=== PATIENT | male | born 1965 | race African-American/Black ===

== ENCOUNTER 2016-08-31 20:02 | Inpatient (IN) | payer MEDICARE, MEDICAID ==
--- NOTE | 2016-08-31 20:05 | ED Physician Chart ---
Chief Complaint/HPI - Patient Information Date Seen:: 08/31/16 Time Seen:: 20:05 Chief Complaint:: low blood pressure History of Present Illness:: 51-year-old male history of hepatic failure and elevated ammonia levels brought in by EMS after EMS diverted transport to the closest emergency room for acute, severe, low blood pressure that was noted about 5 minutes prior to arrival. Has associated lethargy. Patient was a resident at [facility] was being transported to an alternate hospital when EMS noted low blood pressure and diverted to this hospital/emergency department which was the closest at that time. History limited as patient has underlying hepatic encephalopathy and is an unreliable historian History provided by EMS and EMS run sheet Allergies:: Allergies Allergy/AdvReac Type Severity Reaction Status Date / Time No Known Allergies Allergy Verified 01/22/16 14:10 Historian:: Patient, EMS Review:: Nurse's Note Reviewed, EMS run form Reviewed Review of Systems - Review of Systems Other: Complete system review otherwise unremarkable except as noted in HPI. Past Medical History - Past Medical History Past Medical History: Asthma/COPD, Other (hepatic insufficiency/failure, elevated ammonia levels) Family History: None Social History: Smoker, No Alcohol, No Drug Use, Care Facility Surgical History: None Psychiatricy History: None Medication: Reviewed Family Medical History - Family Member Mother History Unknown: Yes Labs/Radiology/EKG Results - Radiology Results Results: Single AP VIEW Portable Chest X-ray was interpreted independently and contemporaneously by Telly Dominguez MD: No cardiomegaly Normal mediastinum No lung infiltrates No pneumothorax No soft tissue or bony abnormalities - EKG Interpretations Comments:: 12-lead EKG Interpretation by Telly Dominguez MD: Normal Sinus Rhythm with ventricular rate of 69 beats per minute Normal axis Normal intervals No acute ST or T wave changes. No obvious STEMI Assessment - Assessment General Assessment: SMOKING CESSATION COUNSELING: I spent greater than 3 minutes at the bedside with the patient discussing the benefits of smoking cessation, including decreased risk of heart disease, lung cancer, and emphysema. We also discussed strategies for smoking cessation, including pharmaceutical options. The patient was also encouraged to follow up with the primary care physician for outpatient follow-up. ED Septic Shock - . Is Septic Shock (SBP<90, OR Lactate>4 mmol\L) present?: Yes - <6hrs of presentation: Vital Signs: Vital Signs Temp 98.1 F 08/31/16 20:05 HR 73 08/31/16 20:05 RR 16 08/31/16 20:05 BP 88/57 08/31/16 20:05 O2 Sat % 99 08/31/16 20:05 Temp 98.1 F 08/31/16 20:05 HR 65 08/31/16 21:42 RR 16 08/31/16 21:42 BP 88/55 08/31/16 21:42 O2 Sat % 99 08/31/16 21:42 Vital Signs Temp 98.1 F 08/31/16 20:05 HR 73 08/31/16 20:05 RR 16 08/31/16 20:05 BP 88/57 08/31/16 20:05 O2 Sat % 99 08/31/16 20:05 Temp 98.1 F 08/31/16 20:05 HR 61 08/31/16 22:20 RR 16 08/31/16 21:42 BP 93/54 08/31/16 22:20 O2 Sat % 99 08/31/16 21:42 Assessment of Lungs: Lung CTA bilateral, No Wheezing, No Stridor Assessment of Heart: RRR, No Rub, No Murmur EKG Interpretation: NSR, Documented in Result Capillary refill evaluation: Capillary refill < 2 secs Skin Exam: Warm, Dry - Peripheral pulse evaluation Brachial Peripheral pulse evaluation-quality: +2 (normal) Reassessment (Disposition) - Reassessment Reassessment:: Patient's initial blood pressure was low with systolic below 80. IV fluid bolus 30 cc/kg was performed. Blood pressure responded well. Patient remained alert and oriented entire time. I have a low suspicion for sepsis however it should be ruled out. EKG machine read acute OH. I did not feel there was acute ST elevation however V2 did demonstrate some slight ST elevation. Discussed case with our STEMI receiving center president and chief commercial officer tactical response group officer Dr. Mota who reviewed the EKG and also felt there was no acute findings. Cardiology did recommend stat echocardiogram which was performed. Troponins are negative. No acute findings on echocardiogram. Discussed case with Dr. Green, rule out sepsis unknown source at this time. Severe hypotension. Patient admitted to ICU. Admit MDM: Patient's infectious symptoms have not stabilized and the patient is at risk of rapid decompensation. The patient will be admitted for careful hydration, antibiotic therapy, and infectious source control. Severe Sepsis criteria: Infectious source: Unknown End organ damage indicated by: Hypotension (SBP < 90 or >40 mmHG drop or MAP < 65) Sepsis Management: Time of recognition of severe sepsis/septic shock: 2004 Within 3 hours of recognition: Blood cultures x 2 before broad-spectrum antibiotics: Yes 30 ml/kg NS bolus Completed Initial lactate 1.34 Septic Shock Assessment: Any lactic acid > 4.0 No Persistent hypotension (SBP < 90 or 40 mmHg drop, MAP < 65) despite 30 mL/kg IV fluid bolus No Volume Re-assessment for Septic Shock (post 30 ml/kg bolus): Vital Signs Temp 98.1 F 08/31/16 20:05 HR 73 08/31/16 20:05 RR 16 08/31/16 20:05 BP 88/57 08/31/16 20:05 O2 Sat % 99 08/31/16 20:05 Temp 98.1 F 08/31/16 20:05 HR 65 08/31/16 21:42 RR 16 08/31/16 21:42 BP 88/55 08/31/16 21:42 O2 Sat % 99 08/31/16 21:42 Vital Signs Temp 98.1 F 08/31/16 20:05 HR 73 08/31/16 20:05 RR 16 08/31/16 20:05 BP 88/57 08/31/16 20:05 O2 Sat % 99 08/31/16 20:05 Temp 98.1 F 08/31/16 20:05 HR 61 08/31/16 22:20 RR 16 08/31/16 21:42 BP 93/54 08/31/16 22:20 O2 Sat % 99 08/31/16 21:42 Heart Regular rate & rhythm Lungs No crackles Skin Warm & dry Cap Refill Less than 2 seconds Peripheral pulses Radially present Accepting Care Team Current data and ongoing care discussed. Time: 2138 Admitting Physician: Peter Fixer Boarding Room(s): Critical Care: Critical care time 35 minutes Emergent fluid management while maintaining close respiratory support. Provision of immediate and broad-spectrum antibiotic therapy. Simultaneous assessment for possible sources in order to direct targeted therapy. Consideration for invasive and chemical support to prevent cardiopulmonary collapse. Reassessment Condition:: Improved - Diagnosis Diagnosis:: Rule out septic shock, unknown source Hepatic encephalopathy Chronic Liver failure - Patient Disposition Discharge/Transfer:: Acute Care w/in this hosp Admitted to:: ICU Admitting Medical Physician:: Derrell Green Time:: 21:39 Condition at Disposition:: Improved ED Discharge Plan - Patient Disposition Admit/Discharge/Transfer: Acute Care w/in this hosp
[2016-08-31] MEDS ORDERED: Sodium Chloride 0.9% 1,000 ML IV ONE ×3 (20:08→20:17)
[2016-08-31 20:44] LABS: % BASOPHILS 0.6 % (0.0-2.0); % EOSINOPHILS 2.9 % (0.0-5.0); % LYMPHOCYTES 38.2 % (20.0-50.0); % NEUTROPHILS 49.3 % (40.0-80.0); HEMOGLOBIN 13.7 gm/dL (13.2-17.3); MEAN CELL VOLUME 100.8 fl (80-99); MEAN CORPUSCULAR HEMOGLOBIN 33.5 pg (26.0-30.0); MEAN CORPUSCULAR HGB CONC 33.3 pg (28.0-36.0); MEAN PLATELET VOLUME 8.4 fl; NEUTROPHILE ABSOLUTE 4.2 Th/cmm (1.8-8.0); RED BLOOD COUNT 4.08 Mil/cmm (4.30-5.70); RED CELL DISTRIBUTION WIDTH 13.6 % (11.5-20.0); WHITE BLOOD COUNT 8.6 Th/cmm (4.8-10.8)
[2016-08-31 20:47] LABS: HEMATOCRIT 41.1 % (39.0-49.0); PLATELET COUNT 157 Th/cmm (150-400)
[2016-08-31] MEDS ORDERED: cefTRIAXone 1 GM in Sodium Chloride 0.9% 50 ML IV ONE (20:59)
[2016-08-31 21:06] LABS: ALB/GLOB RATIO 0.9 (1.0-1.8); ALKALINE PHOSPHATASE 40 U/L (34-104); ANION GAP 8.7 (7.0-16.0); BILIRUBIN,TOTAL 0.2 mg/dL (0.3-1.0); BUN - UREA NITROGEN 16 mg/dL (7-25); CARBON DIOXIDE 28.3 mEq/L (21.0-31.0); CHLORIDE 101 mEq/L (98-107); CREATININE - SERUM 0.8 mg/dL (0.7-1.3); GLUCOSE 115 mg/dL (70-105); SGOT 22 U/L (13-39); SGPT/ALT 17 U/L (7-52); SODIUM SERUM 134 mEq/L (136-145)
[2016-08-31 21:14] LABS: INR 1.11 (0.5-1.4); PROTHROMBIN TIME (TEST) 11.6 SECONDS (9.5-11.5)
[2016-08-31] MEDS ORDERED: Maalox 30 mL Cup PO PRN (21:48)
[2016-08-31] MEDS ORDERED: Magnesium Hydroxide (MOM) 30 mL UDC PO PRN (21:48)
[2016-08-31] MEDS ORDERED: D5-0.9%NS 1,000 ML IV SCH (22:00)
[2016-08-31] MEDS ORDERED: Levofloxacin 500mg/100mL 500 MG/100 ML BAG IV SCH (22:00)
[2016-08-31 23:08] LABS: URINE BACTERIA NONE SEEN /hpf (NONE SEEN); URINE BILIRUBIN NEGATIVE (NEGATIVE); URINE BLOOD NEGATIVE (NEGATIVE); URINE COLOR YELLOW; URINE EPITHELIAL CELLS NONE SEEN /lpf (FEW); URINE GLUCOSE (UA) NEGATIVE (NEGATIVE); URINE KETONE NEGATIVE (NEGATIVE); URINE PROTEIN NEGATIVE (NEGATIVE); URINE RBC NONE SEEN /hpf (0-5); URINE UROBILINOGEN 0.2 E.U./dL (0.2 - 1.0); URINE WBC NONE SEEN /hpf (0-5)
--- NOTE | 2016-09-01 02:56 | Admit Criteria Form ---
Admit Criteria Forms - Admit Criteria Diagnosis: LIVER DISEASE COMPLICATIONS Clinical Indications for Admission to Inpatient Care (Place 'X' for any and all applicable criteria): Admission is indicated for patient with ANY ONE of the following(1)(2)(3)(4): [X ]I. Inpatient admission required rather than observation care because of ANY ONE of the following: [ ]a) Hemodynamic instability that is severe or persistent [ ]b) Severe electrolyte abnormalities requiring inpatient care [ ]c) Respiratory compromise that is severe or persistent [ ]d) Coagulation abnormal that is severe or persistent [ ]e) Severe pain requiring acute inpatient management [ ]f) Renal insufficiency that is severe or worsening [ ]g) Metabolic abnormalities (e.g., vomiting, hypoglycemia, acidosis) that are severe or persistent [ ]h) Hypovolemia or hypervolemia that is severe or persistent [ ]i) Absent bowel sounds with complete ileus(2) [ ]j) Signs of intestinal obstruction or peritonitis[A] [ ]k) IV fluid to replace significant ongoing losses (>3 L/m2 per day) [ ]l) Continuous IV infusion of anticoagulation, platelet inhibitor, vasoactive, or antiarrhythmic medication [ ]m) Percutaneous or open drainage (e.g., abscess, biliary tract) procedures [ ]n) Parenteral nutrition regimen that must be implemented on inpatient basis [ X]o) Other condition treatment or monitoring requiring inpatient admission [ ]II. Infected hepatic hydrothorax (eg, empyema) [ ]III. Hepatorenal syndrome (eg, elevated. creatinine with adequate volume status and negative evaluation for other cause)(8) [ ]IV. Spontaneous bacterial peritonitis [ ]V. Suspected infected ascites as indicated by ANY ONE of the following: [ ]a) Temp >100 degrees F (37.8 C ) [ ]b) High WBC count [ ]c) Abdominal pain or tenderness not relieved by paracentesis [X ]. New-onset or worsening hepatic encephalopathy(7) [ ]VII. Suspected fulminant hepatic failure (e.g., acute coagulopathy with hepatic encephalopathy or acute elevation of hepatic transaminases to more than 15 times baseline)(4) [ ]VIII. Acute hepatitis (e.g., ALT and AST at least 3 times baseline) with coagulopathy or severe jaundice as indicated by ANY ONE of the following(9)(10): [ ]a) Bilirubin >20 mg/dL (342 moles/L)(11) [ ]b) Acute elevation of PT to >50% above normal or INR >1.5 [ ] IX. Treatment of injury from hepatotoxin (e.g., acetaminophen) that requires inpatient monitoring [ ] X. Acute fatty liver of Extended stay beyond goal length of stay may be needed for(3)(7): [ ]a) Hepatorenal syndrome [ ]b) Severe or persistent hepatic encephalopathy [ ]c) Renal failure due to other causes associated with cirrhosis (e.g., hypovolemia) [ ]d) Severe or persistent coagulation abnormalities [ ]e) Refractory ascites, volume, or electrolyte abnormality [ ]f) Severe or persistent gastroesophageal bleeding [ ]g) Severe infectious or hepatotoxin-induced hepatitis (eg, acetaminophen) [ ]h) Hemodynamic instability that is severe or persistent The original [employer] content created by [employer] has been revised. The portions of the content which have been revised are identified through the use of italic text or in bold, and [facility] has neither reviewed nor approved the modified material. All other unmodified content is copyright [facility] [employer]. Please see references footnoted in the original [facility] [employer] edition 2016 Admit Criteria Met?: Yes
[2016-09-01] MEDS: Albuterol Nebulizer 2.5mg/3mL HHN SCH ×4 (07:54→19:17)
[2016-09-01] MEDS ORDERED: Lactulose 10 Gm/15 mL 30mL UDC PO SCH ×2 (09:00→14:00)
--- NOTE | 2016-09-01 09:15 | Diagnostic Imaging Report ---
CHEST X-RAY: AP view INDICATION: pain COMPARISON: None FINDINGS: The patient is slightly rotated. No focal consolidation pleural effusions. Postsurgical changes are noted. Heart size is at the upper limits of normal. Degenerative changes of the spine are noted. Postsurgical changes of the upper abdomen is noted. IMPRESSION: No focal consolidation identified.
--- NOTE | 2016-09-01 11:36 | Internal Medicine Prog Note ---
Internal Medicine Subjective - Subjective Service Date: 09/01/16 ([facility] [id number]) Patient seen and examined:: with staff Patient is:: awake Per staff patient is:: no adverse event Internal Medicine Objective - Results Result Diagrams: 08/31/16 20:30 08/31/16 20:30 Recent Labs: Laboratory Last Values WBC 8.6 Th/cmm (4.8-10.8) 08/31/16 20:30 RBC 4.08 Mil/cmm (4.30-5.70) L 08/31/16 20:30 Hgb 13.7 gm/dL (13.2-17.3) 08/31/16 20:30 Hct 41.1 % (39.0-49.0) D 08/31/16 20:30 MCV 100.8 fl (80-99) H 08/31/16 20:30 MCH 33.5 pg (26.0-30.0) H 08/31/16 20:30 MCHC Differential 33.3 pg (28.0-36.0) 08/31/16 20:30 RDW 13.6 % (11.5-20.0) 08/31/16 20:30 Plt Count 157 Th/cmm (150-400) D 08/31/16 20:30 MPV 8.4 fl 08/31/16 20:30 Neutrophils % 49.3 % (40.0-80.0) 08/31/16 20:30 Lymphocytes % 38.2 % (20.0-50.0) 08/31/16 20:30 Monocytes % 9.0 % (2.0-10.0) 08/31/16 20:30 Eosinophils % 2.9 % (0.0-5.0) 08/31/16 20:30 Basophils % 0.6 % (0.0-2.0) 08/31/16 20:30 PT 11.6 SECONDS (9.5-11.5) H 08/31/16 20:30 INR 1.11 (0.5-1.4) 08/31/16 20:30 PTT (Actin FS) 28.3 SECONDS (26.0-38.0) 08/31/16 20:30 Sodium 134 mEq/L (136-145) L 08/31/16 20:30 Potassium 4.0 mEq/L (3.5-5.1) 08/31/16 20:30 Chloride 101 mEq/L (98-107) 08/31/16 20:30 Carbon Dioxide 28.3 mEq/L (21.0-31.0) 08/31/16 20:30 Anion Gap 8.7 (7.0-16.0) 08/31/16 20:30 BUN 16 mg/dL (7-25) 08/31/16 20:30 Creatinine 0.8 mg/dL (0.7-1.3) 08/31/16 20:30 Est GFR ( Amer) > 60.0 ml/min (>90) 08/31/16 20:30 Est GFR (Non-Af Amer) > 60.0 ml/min 08/31/16 20:30 BUN/Creatinine Ratio 20.0 08/31/16 20:30 Glucose 115 mg/dL (70-105) H 08/31/16 20:30 Whole Bld Lactic Acid 1.34 mmol/L (0.60-1.99) 08/31/16 20:30 Calcium 9.0 mg/dL (8.6-10.3) 08/31/16 20:30 Total Bilirubin 0.2 mg/dL (0.3-1.0) L 08/31/16 20:30 AST 22 U/L (13-39) 08/31/16 20:30 ALT 17 U/L (7-52) 08/31/16 20:30 Alkaline Phosphatase 40 U/L (34-104) 08/31/16 20:30 Ammonia 97 umol/L (16-53) H 08/31/16 20:30 Creatine Kinase 193 U/L (30-223) 08/31/16 20:30 Troponin I < 0.01 ng/mL (0.01-0.05) L 08/31/16 20:30 Total Protein 6.8 gm/dL (6.0-8.3) 08/31/16 20:30 Albumin 3.3 gm/dL (4.2-5.5) L 08/31/16 20:30 Globulin 3.5 gm/dL 08/31/16 20:30 Albumin/Globulin Ratio 0.9 (1.0-1.8) L 08/31/16 20:30 Urine Source CLEAN C 08/31/16 22:15 Urine Color YELLOW 08/31/16 22:15 Urine Clarity CLEAR (CLEAR) 08/31/16 22:15 Urine pH 7.0 08/31/16 22:15 Ur Specific [place] 1.015 (1.005-1.030) 08/31/16 22:15 Urine Protein NEGATIVE mg/dL (NEGATIVE) 08/31/16 22:15 Urine Glucose (UA) NEGATIVE mg/dL (NEGATIVE) 08/31/16 22:15 Urine Ketones NEGATIVE mg/dL (NEGATIVE) 08/31/16 22:15 Urine Blood NEGATIVE (NEGATIVE) 08/31/16 22:15 Urine Nitrate NEGATIVE (NEGATIVE) 08/31/16 22:15 Urine Bilirubin NEGATIVE (NEGATIVE) 08/31/16 22:15 Urine Urobilinogen 0.2 E.U./dL (0.2 - 1.0) 08/31/16 22:15 Ur Leukocyte Esterase NEGATIVE (NEGATIVE) 08/31/16 22:15 Urine RBC NONE SEEN /hpf (0-5) 08/31/16 22:15 Urine WBC NONE SEEN /hpf (0-5) 08/31/16 22:15 Ur Epithelial Cells NONE SEEN /lpf (FEW) 08/31/16 22:15 Urine Bacteria NONE SEEN /hpf (NONE SEEN) 08/31/16 22:15 Phenytoin 5.5 ug/ml (10.0-20.0) L 08/31/16 20:30 - Physical Exam Vitals and I&O: Vital Signs Temp 97.6 F 09/01/16 04:00 Pulse 76 09/01/16 11:33 Resp 20 09/01/16 11:33 BP 101/64 09/01/16 07:00 Pulse Ox 98 09/01/16 11:33 Intake & Output 08/31/16 09/01/16 09/01/16 18:59 06:59 18:59 Intake Total 1000 Balance 1000 Intake: Intake, IV Amount 1000 Active Medications: Current Medications Acetaminophen (Tylenol) 650 mg PO Q4HR PRN PRN Reason: Pain or Fever >101 Stop: 10/30/16 21:47 Al Hydrox/Mg Hydrox/Simethicone (Maalox) 30 ml PO Q4HR PRN PRN Reason: GI DISTRESS Stop: 10/30/16 21:47 Albuterol Sulfate (Albuterol 2.5mg/3ml Neb Ud) 2.5 mg HHN QIDRT [facility] Stop: 10/31/16 06:59 Last Admin: 09/01/16 11:33 Dose: 2.5 mg Aspirin (Ecotrin) 81 mg PO DAILY KEL Stop: 10/31/16 08:59 Last Admin: 09/01/16 09:11 Dose: 81 mg Atorvastatin Calcium (Lipitor) 20 mg PO HS KEL PRN Reason: Protocol Stop: 10/31/16 20:59 Benztropine Mesylate (Cogentin) 0.5 mg PO BID [facility] Stop: 10/31/16 08:59 Last Admin: 09/01/16 09:12 Dose: 0.5 mg Famotidine (Pepcid) 20 mg PO DAILY [facility] Stop: 10/31/16 08:59 Last Admin: 09/01/16 09:12 Dose: 20 mg Folic Acid (Folate) 1 mg PO DAILY [facility] Stop: 10/31/16 08:59 Last Admin: 09/01/16 09:12 Dose: 1 mg Dextrose/Sodium Chloride (D5-0.9%Ns) 1,000 mls @ 100 mls/hr IV .Q10H [facility] Stop: 10/30/16 21:59 Levofloxacin (Levaquin Pb) 500 mg in 100 mls @ 100 mls/hr IV Q24HR [facility] Stop: 10/30/16 21:59 Levetiracetam (Keppra) 750 mg PO BID [facility] Stop: 10/31/16 08:59 Last Admin: 09/01/16 09:12 Dose: 750 mg Magnesium Hydroxide (Milk Of Magnesia) 30 ml PO HS PRN PRN Reason: Constipation Stop: 10/30/16 21:47 Ondansetron HCl (Zofran) 4 mg IV Q8H PRN PRN Reason: Nausea / Vomiting Stop: 10/30/16 21:51 Phenytoin (Dilantin) 200 mg PO HS [facility] Stop: 10/31/16 20:59 Phenytoin (Dilantin) 100 mg PO BID [facility] Stop: 10/31/16 08:59 Last Admin: 09/01/16 09:12 Dose: 100 mg Risperidone (Risperdal) 1.5 mg PO HS KEL PRN Reason: Protocol Stop: 10/31/16 20:59 General: alert HEENT: NC/AT, PERRLA Neck: Supple Lungs: CTAB Cardiovascular: RRR, Normal S1, Normal S2, without murmur Abdomen: soft non-tender, non-distended Extremities: clear Internal Medicine Assmt/Plan - Assessment Assessment: HYPOTENSION SEPSIS HEPATIC ENCEPHALOPATHY Nutritional Asmnt/Malnutr-PDOC - Dietary Evaluation Malnutrition Findings (Please click <Entered> for more info): Nutritional Asmnt/Malnutrition Start: 09/01/16 10: 46 Text: Status: Complete Freq: Document 09/01/16 10:46 GSUN (Rec: 09/01/16 11:06 [email or web address] [email or web address]) Nutritional Asmnt/Malnutrition Patient General Information Nutritional Screening High Risk Screening Diagnosis ER: hepatic failure and encephalopathy, hypotension, r /o septic shock Pertinent Medical Hx/Surgical Hx ER: hepatic failure, hepatic encephalopathy, elevated ammonia levels, asthma/COPD, smoker Subjective Information 51 year old male from SNF. Pt was asleep during visit, obtained CBW 183.9lb. Spoke to ACACIA Crowley, rule out sepsis, pt has good appetite and able to ambulate to bathroom, pt is usually awake with some confusion noted. Spoke to COMPUTER SYSTEMS DESIGN ANALYST Naomie regarding current diet. Current Diet Order/ Nutrition Support Low protein Pertinent Medications Maalox, Lipitor, D5-0.9, Pepcid, Folate, MOM, Zofran Pertinent Labs 08/31: glucose 115H, ammonia 97H , WBC 8.6 WNL, whole bld lactic acid 1.34 WNL Nutritional Hx/Data Height 6 ft Height (Calculated Centimeters) 182.9 Current Weight (lbs) 183 lb 14.4 oz Weight (Calculated Kilograms) 83.4 Weight (Calculated Grams) 79172.6 [place] Body Weight 178lb Weight Status Approriate GI Symptoms Food Allergies No Cultural/Ethnic/Buddhism Belief Unknown. Usual diet at home Unknown. Skin Integrity/Comment: Saulo 20. Skin intact. Estimated Nutritional Goals BEE in Kcals: Using Current wt Calories/Kcals/Kg CBW 83.4kg, 25-30kcal/kg Kcals Calculated 2085-2502kcal Protein: Using Current wt Protein g/kg: CBW 0.6-0.8g/kg, hepatic encephalopathy Protein Calculated 50-67g Fluid: ml 2085-2502ml (1ml/kcal) Nutritional Problem 1. Problem Problem Impaired nutrient utilization related to Etiology liver dysfunction aeb Signs/Symptoms: elevated ammonia, dx. hepatic failure and encephalopathy Intervention/Recommendation Comments 1. Continue with low protein diet as ordered in aid of chronic hepatic failure and encephalopathy. RD will review menus, FNS notified. Expected Outcomes/Goals Expected Outcomes/Goals 1. PO intake to meet at least 75% of estimated nutritional needs. Physician Parameters for PEM Serum Albumin (g/dl) 3.1 - 3.4 (Mild)
[2016-09-01] MEDS ORDERED: Pneumococcal Vaccine 0.5 mL Vial IM ONE (12:13)
--- NOTE | 2016-09-01 14:36 | History & Physical ---
CHIEF COMPLAINT: Low blood pressure. HISTORY OF PRESENT ILLNESS: This is a 51-year-old -[place] male who is a resident of [facility] who is brought here to [facility] for hypotension. For this reason, the patient is now admitted to the ICU unit. PAST MEDICAL HISTORY: Asthma, COPD, renal failure, elevated ammonia level. SOCIAL HISTORY: The patient is a residential resident, requiring 24-hour nursing care. PAST SURGICAL HISTORY: None. FAMILY HISTORY: Unknown. MEDICATIONS: Please see medication reconciliation sheet. REVIEW OF SYSTEMS: Unable to obtain due to patient's mental status. PHYSICAL EXAMINATION: GENERAL: The patient is well developed, well nourished, no apparent distress. VITAL SIGNS: Temperature 97.6, heart rate ____, blood pressure 98/71, respirations 16, O2 100%. HEENT: Head; normocephalic, atraumatic. NECK: Supple. No mass. LUNGS: Few rhonchi. CARDIOVASCULAR: Regular rhythm. ABDOMEN: Soft, nontender. LABORATORY DATA: WBC 8.6, H and H 13.7 and 41.1, platelet 157. Sodium 134, potassium 4.0, BUN 16, creatinine 0.8. Troponin 0.01. Ammonia level of 97. Dilantin level of 5.5. DIAGNOSTICS: The patient had a chest x-ray done and the impression is no focal consolidation. ASSESSMENT: Hypertension, sepsis, hepatic encephalopathy. PLAN: We will admit the patient to the ICU. We will get blood culture. We will monitor patient's electrolytes levels and IV fluids for hydration. Seizure precautions. We will continue to monitor the patient. JOB# [id number]
[2016-09-01 15:47] LABS: % BASOPHILS 0.7 % (0.0-2.0); % EOSINOPHILS 1.1 % (0.0-5.0); % LYMPHOCYTES 28.6 % (20.0-50.0); % MONOCYTES 8.8 % (2.0-10.0); % NEUTROPHILS 60.8 % (40.0-80.0); HEMOGLOBIN 15.2 gm/dL (13.2-17.3); MEAN CELL VOLUME 100.1 fl (80-99); MEAN CORPUSCULAR HEMOGLOBIN 33.2 pg (26.0-30.0); MEAN CORPUSCULAR HGB CONC 33.1 pg (28.0-36.0); PLATELET COUNT 163 Th/cmm (150-400); RED BLOOD COUNT 4.57 Mil/cmm (4.30-5.70); RED CELL DISTRIBUTION WIDTH 13.8 % (11.5-20.0); WHITE BLOOD COUNT 8.2 Th/cmm (4.8-10.8)
[2016-09-01 15:50] LABS: HEMATOCRIT 45.8 % (39.0-49.0)
[2016-09-01 15:58] LABS: ANION GAP 6.9 (7.0-16.0); BUN - UREA NITROGEN 14 mg/dL (7-25); BUN/CREATININE RATIO 15.6; CALCIUM SERUM 9.3 mg/dL (8.6-10.3); CARBON DIOXIDE 30.9 mEq/L (21.0-31.0); CHLORIDE 103 mEq/L (98-107); CREATININE - SERUM 0.9 mg/dL (0.7-1.3); GLUCOSE 93 mg/dL (70-105); MAGNESIUM 1.9 mg/dL (1.9-2.7); POTASSIUM SERUM 3.8 mEq/L (3.5-5.1); SODIUM SERUM 137 mEq/L (136-145)
[2016-09-01] MEDS ORDERED: Atorvastatin Calcium 10 MG TAB PO SCH (21:00)
[2016-09-02 15:11] LABS: FOLIC ACID >20.0 ng/mL (>3.0)
--- NOTE | 2016-09-03 15:05 | Cardiology ---
ECHOCARDIOGRAM REPORT The patient of Dr. Green. M-MODE ECHOCARDIOGRAM: Mitral valve, anterior leaflet of mitral valve shows normal excursion, EF velocity. Posterior leaflet of the mitral valve shows normal excursion. Left ventricular posterior wall shows increased thickness, normal excursion. Interventricular septum shows increased thickness, normal excursion, minimal hypertrophy of the left ventricle, ejection fraction 56%. Left atrium normal. Aortic root shows normal dimension, normal excursion of aortic leaflets. CONCLUSION: Minimal hypertrophy of the left ventricle, ejection fraction 56%. 2D ECHO: Long axis view showed normal sized left ventricle with minimal hypertrophy of the left ventricle, ejection fraction 56%. Left atrium normal. Aortic root shows normal dimension, normal excursion of aortic leaflets. Short axis view of mitral valve normal. Short axis view of aortic valve normal. Apical 4-chamber view showed normal sized left ventricle with minimal hypertrophy of the left ventricle. Left atrium normal. Right ventricular cavity, right atrium normal. No pericardial effusion. CONCLUSION: Hypertrophy of the left ventricle, ejection fraction 56%. Doppler study shows mild mitral regurgitation, mild tricuspid regurgitation. [facility]# [id number]
== END 2016-09-01 19:56 | DRG 871 ==
LOC: ER 20:02 → ICU 21:25
PROVIDERS: ADMIT Internal Medicine; ATTEND Internal Medicine
DX: A41.9 Sepsis, unspecified organism (principal); K72.00 Acute and subacute hepatic failure without coma; I10 Essential (primary) hypertension; J45.909 Unspecified asthma, uncomplicated; J44.9 Chronic obstructive pulmonary disease, unspecified; F17.210 Nicotine dependence, cigarettes, uncomplicated; K72.10 Chronic hepatic failure without coma
CPT/HCPCS: 36415-UA; 71010-TC; 80048-TC; 80053-TC; 80185-TC; 81001-TC; 82140-TC; 82550-TC; 82607-90; 82746-90; 83605; 83735-TC; 84443-TC; 84484-TC; 85025-TC; 85610-TC; 85730-TC; 93005; 94640; J0696; J1956; J7042; J7613; Z7502; Z7610

== ENCOUNTER 2016-09-01 19:56 | Inpatient (IN) | payer MEDICAID, MEDICARE ==
[2016-09-01] MEDS ORDERED: Magnesium Hydroxide (MOM) 30 mL UDC PO PRN (20:03)
[2016-09-01] MEDS ORDERED: Maalox 30 mL Cup PO PRN (20:04)
[2016-09-01 20:58] VITALS: BP 104/71
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
[2016-09-01] MEDS: Atorvastatin Calcium 10 MG TAB PO SCH (22:03)
[2016-09-01] MEDS: Lactulose 10 Gm/15 mL 30mL UDC PO SCH (22:06)
[2016-09-02] MEDS: Albuterol Nebulizer 2.5mg/3mL HHN SCH ×4 (07:22→19:27)
[2016-09-02] MEDS: Lactulose 10 Gm/15 mL 30mL UDC PO SCH ×3 (08:20→20:43)
--- NOTE | 2016-09-02 11:39 | Internal Medicine Prog Note ---
Internal Medicine Subjective - Subjective Service Date: 09/02/16 Patient seen and examined:: with staff Patient is:: awake Per staff patient is:: no adverse event Internal Medicine Objective - Physical Exam Vitals and I&O: Vital Signs Temp 98.2 F 09/01/16 21:00 Pulse 64 09/02/16 11:26 Resp 16 09/02/16 11:26 BP 104/71 09/01/16 21:00 Pulse Ox 97 09/02/16 11:26 Active Medications: Current Medications Acetaminophen (Tylenol) 650 mg PO Q4HR PRN PRN Reason: Pain or Fever >101 Stop: 10/31/16 20:03 Al Hydrox/Mg Hydrox/Simethicone (Maalox) 30 ml PO Q4HR PRN PRN Reason: GI DISTRESS Stop: 10/31/16 20:03 Albuterol Sulfate (Albuterol 2.5mg/3ml Neb Ud) 2.5 mg HHN QIDRT [facility] Stop: 11/01/16 06:59 Last Admin: 09/02/16 11:26 Dose: 2.5 mg Aspirin (Ecotrin) 81 mg PO DAILY [facility] Stop: 11/01/16 08:59 Last Admin: 09/02/16 08:12 Dose: 81 mg Atorvastatin Calcium (Lipitor) 20 mg PO HS [facility]EL PRN Reason: Protocol Stop: 10/31/16 20:59 Last Admin: 09/01/16 22:03 Dose: 20 mg Famotidine (Pepcid) 20 mg PO DAILY [facility] Stop: 11/01/16 08:59 Last Admin: 09/02/16 08:12 Dose: 20 mg Folic Acid (Folate) 1 mg PO DAILY [facility] Stop: 11/01/16 08:59 Last Admin: 09/02/16 08:12 Dose: 1 mg Lactulose (Cephulac) 30 gm PO TID [facility] Stop: 10/31/16 20:59 Last Admin: 09/02/16 08:20 Dose: 30 gm Levetiracetam (Keppra) 750 mg PO BID [facility] Stop: 11/01/16 08:59 Last Admin: 09/02/16 08:13 Dose: 750 mg Levofloxacin (Levaquin) 500 mg PO DAILY [facility] Stop: 11/01/16 08:59 Last Admin: 09/02/16 08:22 Dose: 500 mg Lorazepam (Ativan) 1 mg PO Q6H PRN; Protocol PRN Reason: Anxiety/Agitation Stop: 10/31/16 20:53 Magnesium Hydroxide (Milk Of Magnesia) 30 ml PO HS PRN PRN Reason: Constipation Stop: 10/31/16 20:02 Phenytoin (Dilantin) 200 mg PO HS [facility] Stop: 10/31/16 20:59 Last Admin: 09/01/16 22:04 Dose: 200 mg Phenytoin (Dilantin) 100 mg PO BID [facility] Stop: 11/01/16 08:59 Last Admin: 09/02/16 08:22 Dose: 100 mg Zolpidem Tartrate (Ambien) 5 mg PO HS PRN PRN Reason: Insomnia Stop: 10/31/16 20:53 General: alert HEENT: NC/AT, PERRLA Neck: Supple Lungs: CTAB Cardiovascular: RRR, Normal S1, Normal S2, without murmur Abdomen: soft non-tender, non-distended Internal Medicine Assmt/Plan - Assessment Assessment: ASTHMA COPD RENAL FAILURE - Plan Plan: monitor for any respiratory distress monitor BP fall precautions cpm
[2016-09-02] MEDS: Atorvastatin Calcium 10 MG TAB PO SCH (20:43)
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
[2016-09-03] MEDS: Albuterol Nebulizer 2.5mg/3mL HHN SCH ×4 (08:06→19:00)
[2016-09-03] MEDS: Lactulose 10 Gm/15 mL 30mL UDC PO SCH ×3 (08:42→20:07)
--- NOTE | 2016-09-03 13:20 | Internal Medicine Prog Note ---
Internal Medicine Subjective - Subjective Patient seen and examined:: with staff, chart reviewed Patient is:: awake, verbal, interactive Per staff patient is:: eating well, noncompliant, confused Internal Medicine Objective - Physical Exam Vitals and I&O: Vital Signs Temp 97.6 F 09/02/16 20:58 Pulse 66 09/02/16 20:58 Resp 21 09/02/16 20:58 BP 105/63 09/02/16 20:58 Pulse Ox 97 09/02/16 20:58 Intake & Output 09/02/16 09/03/16 09/03/16 18:59 06:59 18:59 Intake Total 1100 Balance 1100 Intake: Oral 1100 Other: # Voids 4 # Bowel Movements 1 Stool Characteristics Soft Active Medications: Current Medications Acetaminophen (Tylenol) 650 mg PO Q4HR PRN PRN Reason: Pain or Fever >101 Stop: 10/31/16 20:03 Al Hydrox/Mg Hydrox/Simethicone (Maalox) 30 ml PO Q4HR PRN PRN Reason: GI DISTRESS Stop: 10/31/16 20:03 Albuterol Sulfate (Albuterol 2.5mg/3ml Neb Ud) 2.5 mg HHN QIDRT [facility] Stop: 11/01/16 06:59 Last Admin: 09/03/16 13:17 Dose: Not Given Aspirin (Ecotrin) 81 mg PO DAILY [facility] Stop: 11/01/16 08:59 Last Admin: 09/03/16 08:42 Dose: 81 mg Atorvastatin Calcium (Lipitor) 20 mg PO HS [facility]EL PRN Reason: Protocol Stop: 10/31/16 20:59 Last Admin: 09/02/16 20:43 Dose: 20 mg Famotidine (Pepcid) 20 mg PO DAILY [facility] Stop: 11/01/16 08:59 Last Admin: 09/03/16 08:42 Dose: 20 mg Folic Acid (Folate) 1 mg PO DAILY [facility] Stop: 11/01/16 08:59 Last Admin: 09/03/16 08:42 Dose: 1 mg Lactulose (Cephulac) 30 gm PO TID [facility] Stop: 10/31/16 20:59 Last Admin: 09/03/16 08:42 Dose: 30 gm Levetiracetam (Keppra) 750 mg PO BID [facility] Stop: 11/01/16 08:59 Last Admin: 09/03/16 08:53 Dose: 750 mg Levofloxacin (Levaquin) 500 mg PO DAILY [facility] Stop: 11/01/16 08:59 Last Admin: 09/03/16 08:45 Dose: 500 mg Lorazepam (Ativan) 1 mg PO Q6H PRN; Protocol PRN Reason: Anxiety/Agitation Stop: 10/31/16 20:53 Magnesium Hydroxide (Milk Of Magnesia) 30 ml PO HS PRN PRN Reason: Constipation Stop: 10/31/16 20:02 Phenytoin (Dilantin) 200 mg PO HS [facility] Stop: 10/31/16 20:59 Last Admin: 09/02/16 20:44 Dose: 200 mg Phenytoin (Dilantin) 100 mg PO BID [facility] Stop: 11/01/16 08:59 Last Admin: 09/03/16 08:46 Dose: 100 mg Zolpidem Tartrate (Ambien) 5 mg PO HS PRN PRN Reason: Insomnia Stop: 10/31/16 20:53 General: demented HEENT: NC/AT, PERRLA Neck: Supple, No JVD Lungs: CTAB Cardiovascular: RRR, Normal S1, Normal S2 Abdomen: globular, positive bowel sound Extremities: excoriation Neurological: no change, disorganized Internal Medicine Assmt/Plan - Assessment Assessment: ASTHMA COPD ch RENAL FAILURE - Plan Plan: cont on bp meds low na diet fall precaution meds and labs reviewed rafa washburn
[2016-09-03] MEDS: Atorvastatin Calcium 10 MG TAB PO SCH (20:06)
--- NOTE | 2016-09-04 00:59 | Progress Notes ---
SUBJECTIVE: The patient was seen, discussed with staff. The patient was pleasant upon approach; however, he remains confused, oriented to person, not oriented to time or place. The patient appears to have some difficulty more in the evening where he becomes more angry. At times, he is hitting staff when they are trying to assist him with his ADLs. His insight is still poor. Judgment remains impaired. Impulsivity is still high. ASSESSMENT: The patient continues to require hospitalization, continue stabilization, continue to monitor closely. [facility]# [id number]
[2016-09-04] MEDS: Albuterol Nebulizer 2.5mg/3mL HHN SCH ×4 (07:45→19:42)
[2016-09-04] MEDS: Lactulose 10 Gm/15 mL 30mL UDC PO SCH ×3 (09:00→20:34)
--- NOTE | 2016-09-04 12:52 | Internal Medicine Prog Note ---
Internal Medicine Subjective - Subjective Service Date: 09/04/16 Patient seen and examined:: with staff Patient is:: awake Per staff patient is:: no adverse event Internal Medicine Objective - Physical Exam Vitals and I&O: Vital Signs Temp 97.0 F 09/04/16 08:00 Pulse 75 09/04/16 11:59 Resp 18 09/04/16 11:59 BP 99/56 09/04/16 08:00 Pulse Ox 97 09/04/16 11:59 Intake & Output 09/03/16 09/04/16 09/04/16 18:59 06:59 18:59 Intake Total 1000 240 Balance 1000 240 Intake: Oral 1000 240 Other: # Voids 4 1 # Bowel Movements 1 Stool Characteristics Soft Formed Active Medications: Current Medications Acetaminophen (Tylenol) 650 mg PO Q4HR PRN PRN Reason: Pain or Fever >101 Stop: 10/31/16 20:03 Al Hydrox/Mg Hydrox/Simethicone (Maalox) 30 ml PO Q4HR PRN PRN Reason: GI DISTRESS Stop: 10/31/16 20:03 Albuterol Sulfate (Albuterol 2.5mg/3ml Neb Ud) 2.5 mg HHN QIDRT [facility] Stop: 11/01/16 06:59 Last Admin: 09/04/16 11:58 Dose: 2.5 mg Aspirin (Ecotrin) 81 mg PO DAILY [facility] Stop: 11/01/16 08:59 Last Admin: 09/04/16 09:01 Dose: 81 mg Atorvastatin Calcium (Lipitor) 20 mg PO HS [facility] PRN Reason: Protocol Stop: 10/31/16 20:59 Last Admin: 09/03/16 20:06 Dose: 20 mg Famotidine (Pepcid) 20 mg PO DAILY [facility] Stop: 11/01/16 08:59 Last Admin: 09/04/16 09:00 Dose: 20 mg Folic Acid (Folate) 1 mg PO DAILY [facility] Stop: 11/01/16 08:59 Last Admin: 09/04/16 09:00 Dose: 1 mg Lactulose (Cephulac) 30 gm PO TID [facility] Stop: 10/31/16 20:59 Last Admin: 09/04/16 09:00 Dose: 30 gm Levetiracetam (Keppra) 750 mg PO BID [facility] Stop: 11/01/16 08:59 Last Admin: 09/04/16 09:00 Dose: 750 mg Levofloxacin (Levaquin) 500 mg PO DAILY [facility] Stop: 11/01/16 08:59 Last Admin: 09/04/16 09:01 Dose: 500 mg Lorazepam (Ativan) 1 mg PO Q6H PRN; Protocol PRN Reason: Anxiety/Agitation Stop: 10/31/16 20:53 Magnesium Hydroxide (Milk Of Magnesia) 30 ml PO HS PRN PRN Reason: Constipation Stop: 10/31/16 20:02 Phenytoin (Dilantin) 200 mg PO HS [facility] Stop: 10/31/16 20:59 Last Admin: 09/03/16 20:07 Dose: 200 mg Phenytoin (Dilantin) 100 mg PO BID [facility] Stop: 11/01/16 08:59 Last Admin: 09/04/16 09:01 Dose: 100 mg Zolpidem Tartrate (Ambien) 5 mg PO HS PRN PRN Reason: Insomnia Stop: 10/31/16 20:53 General: alert HEENT: NC/AT, PERRLA Neck: Supple Lungs: CTAB Cardiovascular: RRR, Normal S1, Normal S2, without murmur Abdomen: soft non-tender, non-distended Extremities: clear Internal Medicine Assmt/Plan - Assessment Assessment: ASTHMA COPD RENAL FAILURE - Plan Plan: monitor for any respiratory distress monitor BP fall precautions cpm
[2016-09-04] MEDS: Atorvastatin Calcium 10 MG TAB PO SCH (20:34)
--- NOTE | 2016-09-05 04:58 | Progress Notes ---
SUBJECTIVE: I met this patient, discussed with staff, continues to have anxiety and irritability, some agitation. Episodes where he is refusing care, or trying to hit staff, ____ assisting him with his ADLs. His insight remains poor, judgment remains impaired. Impulse control is still poor. ASSESSMENT: The patient still in psychotic phase. PLAN: We will continue medication management. Continue stabilization. Continue to monitor closely, restart the patient on risperidone 1 mg p.o. at bedtime. Monitor condition. [facility]# [id number]
[2016-09-05] MEDS: Albuterol Nebulizer 2.5mg/3mL HHN SCH ×4 (07:16→19:06)
[2016-09-05] MEDS: Lactulose 10 Gm/15 mL 30mL UDC PO SCH ×3 (08:50→21:24)
--- NOTE | 2016-09-05 16:07 | Internal Medicine Prog Note ---
Internal Medicine Subjective - Subjective Service Date: 09/05/16 Patient seen and examined:: with staff Patient is:: awake Per staff patient is:: no adverse event Internal Medicine Objective - Physical Exam Vitals and I&O: Vital Signs Temp 97.5 F 09/05/16 15:27 Pulse 75 09/05/16 15:45 Resp 18 09/05/16 15:45 BP 93/58 09/05/16 15:27 Pulse Ox 97 09/05/16 15:45 Intake & Output 09/04/16 09/05/16 09/05/16 17:59 06:59 18:59 Intake Total Balance Intake: Oral Other: # Voids # Bowel Movements Stool Characteristics Soft Active Medications: Current Medications Acetaminophen (Tylenol) 650 mg PO Q4HR PRN PRN Reason: Pain or Fever >101 Stop: 10/31/16 20:03 Al Hydrox/Mg Hydrox/Simethicone (Maalox) 30 ml PO Q4HR PRN PRN Reason: GI DISTRESS Stop: 10/31/16 20:03 Albuterol Sulfate (Albuterol 2.5mg/3ml Neb Ud) 2.5 mg HHN QIDRT [facility] Stop: 11/01/16 06:59 Last Admin: 09/05/16 15:42 Dose: 2.5 mg Aspirin (Ecotrin) 81 mg PO DAILY [facility] Stop: 11/01/16 08:59 Last Admin: 09/05/16 08:49 Dose: 81 mg Atorvastatin Calcium (Lipitor) 20 mg PO HS [facility]EL PRN Reason: Protocol Stop: 10/31/16 20:59 Last Admin: 09/04/16 20:34 Dose: 20 mg Famotidine (Pepcid) 20 mg PO DAILY [facility] Stop: 11/01/16 08:59 Last Admin: 09/05/16 08:50 Dose: 20 mg Folic Acid (Folate) 1 mg PO DAILY [facility] Stop: 11/01/16 08:59 Last Admin: 09/05/16 08:49 Dose: 1 mg Lactulose (Cephulac) 30 gm PO TID [facility] Stop: 10/31/16 20:59 Last Admin: 09/05/16 08:50 Dose: 30 gm Levetiracetam (Keppra) 750 mg PO BID [facility] Stop: 11/01/16 08:59 Last Admin: 09/05/16 08:49 Dose: 750 mg Levofloxacin (Levaquin) 500 mg PO DAILY [facility] Stop: 11/01/16 08:59 Last Admin: 09/05/16 08:50 Dose: 500 mg Lorazepam (Ativan) 1 mg PO Q6H PRN; Protocol PRN Reason: Anxiety/Agitation Stop: 10/31/16 20:53 Magnesium Hydroxide (Milk Of Magnesia) 30 ml PO HS PRN PRN Reason: Constipation Stop: 10/31/16 20:02 Phenytoin (Dilantin) 200 mg PO HS [facility] Stop: 10/31/16 20:59 Last Admin: 09/04/16 20:34 Dose: 200 mg Phenytoin (Dilantin) 100 mg PO BID [facility] Stop: 11/01/16 08:59 Last Admin: 09/05/16 08:49 Dose: 100 mg Risperidone (Risperdal) 1 mg PO HS [facility] PRN Reason: Protocol Stop: 11/03/16 20:59 Last Admin: 09/04/16 20:34 Dose: 1 mg Zolpidem Tartrate (Ambien) 5 mg PO HS PRN PRN Reason: Insomnia Stop: 10/31/16 20:53 General: alert HEENT: NC/AT, PERRLA Neck: Supple Lungs: CTAB Cardiovascular: RRR, Normal S1, Normal S2, without murmur Abdomen: soft non-tender, non-distended Neurological: no change Internal Medicine Assmt/Plan - Assessment Assessment: ASTHMA COPD RENAL FAILURE - Plan Plan: monitor for any respiratory distress monitor BP fall precautions cpm
[2016-09-05] MEDS: Atorvastatin Calcium 10 MG TAB PO SCH (21:24)
--- NOTE | 2016-09-05 22:53 | Progress Notes ---
SUBJECTIVE: I met this patient, discussed with staff. Remains superficial, states he is fine. The patient has no complaints, denied feeling depressed. The patient is sleeping well. His appetite is fair. The patient is not oriented to time, place, and he does not know his age. His paranoia is still a problem and anger outburst still an issue. ASSESSMENT: The patient continues to be agitated. PLAN: Continue stabilization. Continue hospitalization. [facility]# [id number]
[2016-09-06] MEDS: Albuterol Nebulizer 2.5mg/3mL HHN SCH ×4 (07:45→18:28)
[2016-09-06] MEDS: Lactulose 10 Gm/15 mL 30mL UDC PO SCH ×3 (09:00→20:54)
--- NOTE | 2016-09-06 12:17 | Internal Medicine Prog Note ---
Internal Medicine Subjective - Subjective Service Date: 09/06/16 Patient seen and examined:: with staff Patient is:: awake Per staff patient is:: no adverse event Internal Medicine Objective - Physical Exam Vitals and I&O: Vital Signs Temp 97.2 F 09/06/16 06:04 Pulse 65 09/06/16 11:16 Resp 20 09/06/16 11:16 BP 110/78 09/06/16 06:04 Pulse Ox 99 09/06/16 11:05 Intake & Output 09/05/16 09/06/16 09/06/16 18:59 06:59 18:59 Intake Total 2400 0 Balance 2400 0 Intake: Oral 2400 0 Other: # Voids 4 3 # Bowel Movements 1 0 Stool Characteristics Soft Active Medications: Current Medications Acetaminophen (Tylenol) 650 mg PO Q4HR PRN PRN Reason: Pain or Fever >101 Stop: 10/31/16 20:03 Al Hydrox/Mg Hydrox/Simethicone (Maalox) 30 ml PO Q4HR PRN PRN Reason: GI DISTRESS Stop: 10/31/16 20:03 Albuterol Sulfate (Albuterol 2.5mg/3ml Neb Ud) 2.5 mg HHN QIDRT [facility] Stop: 11/01/16 06:59 Last Admin: 09/06/16 11:05 Dose: 2.5 mg Aspirin (Ecotrin) 81 mg PO DAILY [facility] Stop: 11/01/16 08:59 Last Admin: 09/06/16 08:26 Dose: 81 mg Atorvastatin Calcium (Lipitor) 20 mg PO HS [facility] PRN Reason: Protocol Stop: 10/31/16 20:59 Last Admin: 09/05/16 21:24 Dose: 20 mg Famotidine (Pepcid) 20 mg PO DAILY [facility] Stop: 11/01/16 08:59 Last Admin: 09/06/16 08:26 Dose: 20 mg Folic Acid (Folate) 1 mg PO DAILY [facility] Stop: 11/01/16 08:59 Last Admin: 09/06/16 08:26 Dose: 1 mg Lactulose (Cephulac) 30 gm PO TID [facility] Stop: 10/31/16 20:59 Last Admin: 09/05/16 21:24 Dose: 30 gm Levetiracetam (Keppra) 750 mg PO BID [facility] Stop: 11/01/16 08:59 Last Admin: 09/06/16 08:25 Dose: 750 mg Levofloxacin (Levaquin) 500 mg PO DAILY [facility] Stop: 11/01/16 08:59 Last Admin: 09/06/16 08:26 Dose: 500 mg Lorazepam (Ativan) 1 mg PO Q6H PRN; Protocol PRN Reason: Anxiety/Agitation Stop: 10/31/16 20:53 Magnesium Hydroxide (Milk Of Magnesia) 30 ml PO HS PRN PRN Reason: Constipation Stop: 10/31/16 20:02 Phenytoin (Dilantin) 200 mg PO HS [facility] Stop: 10/31/16 20:59 Last Admin: 09/05/16 21:24 Dose: 200 mg Phenytoin (Dilantin) 100 mg PO BID [facility] Stop: 11/01/16 08:59 Last Admin: 09/06/16 08:26 Dose: 100 mg Risperidone (Risperdal) 1 mg PO HS [facility] PRN Reason: Protocol Stop: 11/03/16 20:59 Last Admin: 09/05/16 21:25 Dose: 1 mg Zolpidem Tartrate (Ambien) 5 mg PO HS PRN PRN Reason: Insomnia Stop: 10/31/16 20:53 General: alert HEENT: NC/AT, PERRLA Neck: Supple Lungs: CTAB Cardiovascular: RRR, Normal S1, Normal S2, without murmur Abdomen: soft non-tender, non-distended Extremities: clear Internal Medicine Assmt/Plan - Assessment Assessment: ASTHMA COPD RENAL FAILURE - Plan Plan: monitor for any respiratory distress monitor BP fall precautions cpm
[2016-09-06] MEDS: Atorvastatin Calcium 10 MG TAB PO SCH (20:51)
[2016-09-07] MEDS: Albuterol Nebulizer 2.5mg/3mL HHN SCH ×3 (08:09→19:43)
[2016-09-07] MEDS: Lactulose 10 Gm/15 mL 30mL UDC PO SCH ×3 (08:37→20:31)
--- NOTE | 2016-09-07 11:17 | Progress Notes ---
SUBJECTIVE: I met this patient, discussed with staff, and chart reviewed. Still confused, forgetful, some agitation and irritability. The patient on the other hand is taking his medications. His appetite is fair and his sleep is fair. The patient's insight is poor and judgment remains impaired. The patient is oriented to person, not oriented to time or place. ASSESSMENT: The patient is still in psychotic phase. PLAN: We will continue hospitalization. Continue to monitor closely. [facility]# [id number]
--- NOTE | 2016-09-07 12:53 | Internal Medicine Prog Note ---
Internal Medicine Subjective - Subjective Service Date: 09/07/16 Patient seen and examined:: with staff Patient is:: awake Per staff patient is:: no adverse event Internal Medicine Objective - Physical Exam Vitals and I&O: Vital Signs Temp 98.4 F 09/07/16 06:47 Pulse 59 09/07/16 08:10 Resp 18 09/07/16 08:10 BP 99/57 09/07/16 06:47 Pulse Ox 98 09/07/16 08:10 Intake & Output 09/06/16 09/07/16 09/07/16 18:59 06:59 18:59 Intake Total 950 240 Balance 950 240 Intake: Oral 950 240 Other: # Voids 3 1 # Bowel Movements 1 0 Active Medications: Current Medications Acetaminophen (Tylenol) 650 mg PO Q4HR PRN PRN Reason: Pain or Fever >101 Stop: 10/31/16 20:03 Al Hydrox/Mg Hydrox/Simethicone (Maalox) 30 ml PO Q4HR PRN PRN Reason: GI DISTRESS Stop: 10/31/16 20:03 Albuterol Sulfate (Albuterol 2.5mg/3ml Neb Ud) 2.5 mg HHN QIDRT [facility] Stop: 11/01/16 06:59 Last Admin: 09/07/16 08:09 Dose: 2.5 mg Aspirin (Ecotrin) 81 mg PO DAILY [facility] Stop: 11/01/16 08:59 Last Admin: 09/07/16 08:40 Dose: 81 mg Atorvastatin Calcium (Lipitor) 20 mg PO HS [facility] PRN Reason: Protocol Stop: 10/31/16 20:59 Last Admin: 09/06/16 20:51 Dose: 20 mg Famotidine (Pepcid) 20 mg PO DAILY [facility] Stop: 11/01/16 08:59 Last Admin: 09/07/16 08:40 Dose: 20 mg Folic Acid (Folate) 1 mg PO DAILY [facility] Stop: 11/01/16 08:59 Last Admin: 09/07/16 08:40 Dose: 1 mg Lactulose (Cephulac) 30 gm PO TID [facility] Stop: 10/31/16 20:59 Last Admin: 09/07/16 08:37 Dose: 30 gm Levetiracetam (Keppra) 750 mg PO BID [facility] Stop: 11/01/16 08:59 Last Admin: 09/07/16 08:40 Dose: 750 mg Levofloxacin (Levaquin) 500 mg PO DAILY [facility] Stop: 11/01/16 08:59 Last Admin: 09/07/16 08:40 Dose: 500 mg Lorazepam (Ativan) 1 mg PO Q6H PRN; Protocol PRN Reason: Anxiety/Agitation Stop: 10/31/16 20:53 Magnesium Hydroxide (Milk Of Magnesia) 30 ml PO HS PRN PRN Reason: Constipation Stop: 10/31/16 20:02 Phenytoin (Dilantin) 200 mg PO HS [facility] Stop: 10/31/16 20:59 Last Admin: 09/06/16 20:51 Dose: 200 mg Phenytoin (Dilantin) 100 mg PO BID [facility] Stop: 11/01/16 08:59 Last Admin: 09/07/16 08:39 Dose: 100 mg Risperidone (Risperdal) 1 mg PO HS [facility] PRN Reason: Protocol Stop: 11/03/16 20:59 Last Admin: 09/06/16 20:51 Dose: 1 mg Zolpidem Tartrate (Ambien) 5 mg PO HS PRN PRN Reason: Insomnia Stop: 10/31/16 20:53 General: alert HEENT: NC/AT Neck: Supple Lungs: CTAB Cardiovascular: RRR, Normal S1, Normal S2, without murmur Abdomen: soft non-tender, non-distended, positive bowel sound Extremities: clear Neurological: no change Internal Medicine Assmt/Plan - Assessment Assessment: ASTHMA COPD RENAL FAILURE - Plan Plan: monitor for any respiratory distress monitor BP fall precautions cpm
[2016-09-07] MEDS: Atorvastatin Calcium 10 MG TAB PO SCH (20:32)
--- NOTE | 2016-09-08 03:53 | Progress Notes ---
The patient was seen, discussed with staff, chart reviewed. Still forgetful; confused; irritable; some agitation, but less compared to time of admission. The patient is taking his medications, currently on risperidone 1 mg at nighttime. The patient's insight is still limited. Judgment remains impaired. Impulsivity is still high. We will continue stabilization. Continue medication management. JOB# [id number]
[2016-09-08] MEDS: Albuterol Nebulizer 2.5mg/3mL HHN SCH ×4 (07:18→20:27)
[2016-09-08] MEDS: Lactulose 10 Gm/15 mL 30mL UDC PO SCH ×3 (08:15→20:31)
--- NOTE | 2016-09-08 16:16 | Internal Medicine Prog Note ---
Internal Medicine Subjective - Subjective Service Date: 09/08/16 Patient seen and examined:: with staff Patient is:: awake Per staff patient is:: no adverse event Internal Medicine Objective - Physical Exam Vitals and I&O: Vital Signs Temp 98.1 F 09/08/16 06:36 Pulse 70 09/08/16 15:35 Resp 18 09/08/16 15:35 BP 93/63 09/08/16 06:36 Pulse Ox 97 09/08/16 15:35 Intake & Output 09/07/16 09/08/16 09/08/16 18:59 06:59 18:59 Intake Total 1000 240 Balance 1000 240 Intake: Oral 1000 240 Other: # Voids 4 3 # Bowel Movements 1 0 Active Medications: Current Medications Acetaminophen (Tylenol) 650 mg PO Q4HR PRN PRN Reason: Pain or Fever >101 Stop: 10/31/16 20:03 Al Hydrox/Mg Hydrox/Simethicone (Maalox) 30 ml PO Q4HR PRN PRN Reason: GI DISTRESS Stop: 10/31/16 20:03 Albuterol Sulfate (Albuterol 2.5mg/3ml Neb Ud) 2.5 mg HHN QIDRT [facility] Stop: 11/01/16 06:59 Last Admin: 09/08/16 15:34 Dose: 2.5 mg Aspirin (Ecotrin) 81 mg PO DAILY [facility] Stop: 11/01/16 08:59 Last Admin: 09/08/16 08:14 Dose: 81 mg Atorvastatin Calcium (Lipitor) 20 mg PO HS [facility] PRN Reason: Protocol Stop: 10/31/16 20:59 Last Admin: 09/07/16 20:32 Dose: 20 mg Buspirone HCl (Buspar) 5 mg PO BID [facility] PRN Reason: Protocol Stop: 11/07/16 16:59 Famotidine (Pepcid) 20 mg PO DAILY [facility] Stop: 11/01/16 08:59 Last Admin: 09/08/16 08:15 Dose: 20 mg Folic Acid (Folate) 1 mg PO DAILY [facility] Stop: 11/01/16 08:59 Last Admin: 09/08/16 08:15 Dose: 1 mg Lactulose (Cephulac) 30 gm PO TID [facility] Stop: 10/31/16 20:59 Last Admin: 09/08/16 14:31 Dose: 30 gm Levetiracetam (Keppra) 750 mg PO BID [facility] Stop: 11/01/16 08:59 Last Admin: 09/08/16 16:12 Dose: 750 mg Levofloxacin (Levaquin) 500 mg PO DAILY [facility] Stop: 11/01/16 08:59 Last Admin: 09/08/16 08:15 Dose: 500 mg Lorazepam (Ativan) 1 mg PO Q6H PRN; Protocol PRN Reason: Anxiety/Agitation Stop: 10/31/16 20:53 Magnesium Hydroxide (Milk Of Magnesia) 30 ml PO HS PRN PRN Reason: Constipation Stop: 10/31/16 20:02 Phenytoin (Dilantin) 200 mg PO HS [facility] Stop: 10/31/16 20:59 Last Admin: 09/07/16 20:32 Dose: 200 mg Phenytoin (Dilantin) 100 mg PO BID [facility] Stop: 11/01/16 08:59 Last Admin: 09/08/16 16:12 Dose: 100 mg Risperidone (Risperdal) 1 mg PO HS [facility] PRN Reason: Protocol Stop: 11/03/16 20:59 Last Admin: 09/07/16 20:32 Dose: 1 mg Zolpidem Tartrate (Ambien) 5 mg PO HS PRN PRN Reason: Insomnia Stop: 10/31/16 20:53 General: alert HEENT: NC/AT, PERRLA Neck: Supple Lungs: CTAB Cardiovascular: RRR, Normal S1, Normal S2, without murmur Abdomen: soft non-tender, non-distended, positive bowel sound Neurological: no change Internal Medicine Assmt/Plan - Assessment Assessment: ASTHMA COPD RENAL FAILURE - Plan Plan: monitor for any respiratory distress monitor BP fall precautions cpm Nutritional Asmnt/Malnutr-PDOC - Dietary Evaluation Malnutrition Findings (Please click <Entered> for more info): Nutritional Asmnt/Malnutrition Start: 09/08/16 15: 22 Text: Status: Complete Freq: Document 09/08/16 15:22 [facility] (Rec: 09/08/16 15:33 [facility] [id number]) Nutritional Asmnt/Malnutrition Patient General Information Diagnosis Schizoaffective disorder and rule out dementia Pertinent Medical Hx/Surgical Hx Asthma, COPD, hx trauma, elevated ammonia and liver issues Subjective Information Pt is a 51-year-old male admitted with chief complaint of low blood pressure and agitation. Pt was sitting in Day Room during time of visit, able to participate in nutrition interview. Pt appears well nourished with no signs of muscle or fat depletion. Pt is a fair historian, but he was unable to recall his UBW. Pt states he "weighs a lot." Per Chart, wt at [facility] on 06/05/16 was 183#/83.2 kg. Current wt of 190#/86.4 kg is stated, unable to measure at this time. Current Diet Order/ Nutrition Support MIGUEL, low fat Patient / S.O Can Pertinent Medications Lipitor, Cephulac, Levaquin, Risperdal Pertinent Labs Reviewed Nutritional Hx/Data Height 6 ft Height (Calculated Centimeters) 182.9 Current Weight (lbs) 190 lb Weight (Calculated Kilograms) 86.2 Weight (Calculated Grams) 51108.6 Usual body Weight (lbs) 183 % Usual Body Weight 104 [place] Body Weight 178 % [place] Body Weight 107 Recent Weight Change No Weight Status Approriate GI Symptoms GI Symptoms None Food Allergies No Cultural/Ethnic/Hindu Belief No cultural or anabaptism beliefs provided. Usual diet at home MIGUEL, low fat with high protein nourishment 4 oz TID, no change in appetite Skin Integrity/Comment: Saulo 20. Skin intact. Current %PO Good (75-100%) Estimated Nutritional Goals Calories/Kcals/Kg Based on UBW 83.2 kg Kcals Calculated 7365-2678 kcals/day (25-30 kcals/kg) Protein g/kg: Based on UBW 83.2 kg Protein Calculated 67-83 gm/day (0.8-1 gm/kg) Fluid: ml 7537-1889 ml/day (30-35 ml/day ) Nutritional Problem 1. Problem Problem No nutritional problems at this time. Malnutrition Alert Is there a minimum of two criteria No selected? Query Text:Check all the applicable criteria. A minimum of two criteria are recommended for diagnosis of either severe or non-severe malnutrition. Malnutrition Related to Morbid Obesity Malnutrition related to morbid obesity No Intervention/Recommendation Comments 1. Continue with current diet as it is adequate to meet estimated nutritional needs. Expected Outcomes/Goals Expected Outcomes/Goals Have pt meet at least 75% of estimated nutritional needs. Physician Parameters for PEM Normal Weight % 90% - 110% (Normal) Body Mass Index (BMI) 19 - 24 (Normal) 09/08/16 15:32 Dietitian Notes by Celina Simon Nutrition Note Initial Nutrition Assessment completed by Celina Simon on 09/08/16. Please refer to nutrition assessment under Patient Care tab of EMR. No nutritional problems at this time. Nutrition Interventions: 1. Continue with current diet as it is adequate to meet estimated nutritional needs. F/U in 7 days as Low risk, 09/15. Initialized on 09/08/16 15:32 - END OF NOTE
[2016-09-08] MEDS: Atorvastatin Calcium 10 MG TAB PO SCH (20:32)
[2016-09-09] MEDS: Albuterol Nebulizer 2.5mg/3mL HHN SCH ×4 (07:17→19:21)
--- NOTE | 2016-09-09 07:59 | Progress Notes ---
SUBJECTIVE: I met this patient. Remains superficial, disorganized, some anger outbursts, some paranoia, mostly at nighttime. ____ staff are assisting him with his ADLs. But his episodes are striking out, so appears to be decreasing. The patient is taking his medications. He is currently on risperidone 1 mg nighttime. His insight is still limited. Judgment remains impaired. PLAN: We will add BuSpar 5 mg p.o. b.i.d. Monitor closely. JOB# [id number]
[2016-09-09] MEDS: Lactulose 10 Gm/15 mL 30mL UDC PO SCH ×3 (08:31→20:08)
[2016-09-09] MEDS: Atorvastatin Calcium 10 MG TAB PO SCH (20:09)
--- NOTE | 2016-09-09 20:13 | Progress Notes ---
SUBJECTIVE: I met this patient and discussed with staff. Remains superficial, still guarded, episodes of anger, episodes where he is trying to push staff, especially when they are trying to assist him with his ADLs. The patient, however, is taking his medications. His p.o. intake is fair. The patient's vital signs are stable. The patient is oriented to person, not oriented to time or place, and does not know his age. Insight is still poor and judgment remains impaired. Thought process is fragmented. ASSESSMENT: The patient is still with some agitation and anger outburst. PLAN: We will continue hospitalization. Continue to monitor closely. JOB# [id number]
--- NOTE | 2016-09-09 21:09 | Internal Medicine Prog Note ---
Internal Medicine Subjective - Subjective Patient seen and examined:: with staff, chart reviewed Patient is:: awake, verbal, interactive Per staff patient is:: no adverse event, no episodes of fall, confused Internal Medicine Objective - Physical Exam Vitals and I&O: Vital Signs Temp 98.2 F 09/09/16 14:00 Pulse 70 09/09/16 15:36 Resp 18 09/09/16 15:36 BP 100/58 09/09/16 14:00 Pulse Ox 97 09/09/16 15:36 Intake & Output 09/09/16 09/09/16 09/10/16 06:59 18:59 06:59 Intake Total 120 1000 Balance 120 1000 Intake: Oral 120 1000 Other: # Voids 3 3 # Bowel Movements 1 Active Medications: Current Medications Acetaminophen (Tylenol) 650 mg PO Q4HR PRN PRN Reason: Pain or Fever >101 Stop: 10/31/16 20:03 Al Hydrox/Mg Hydrox/Simethicone (Maalox) 30 ml PO Q4HR PRN PRN Reason: GI DISTRESS Stop: 10/31/16 20:03 Albuterol Sulfate (Albuterol 2.5mg/3ml Neb Ud) 2.5 mg HHN QIDRT [facility] Stop: 11/01/16 06:59 Last Admin: 09/09/16 19:21 Dose: 2.5 mg Aspirin (Ecotrin) 81 mg PO DAILY [facility] Stop: 11/01/16 08:59 Last Admin: 09/09/16 08:32 Dose: 81 mg Atorvastatin Calcium (Lipitor) 20 mg PO HS [facility] PRN Reason: Protocol Stop: 10/31/16 20:59 Last Admin: 09/09/16 20:09 Dose: 20 mg Buspirone HCl (Buspar) 5 mg PO BID [facility] PRN Reason: Protocol Stop: 11/07/16 16:59 Last Admin: 09/09/16 16:38 Dose: 5 mg Famotidine (Pepcid) 20 mg PO DAILY [facility] Stop: 11/01/16 08:59 Last Admin: 09/09/16 08:33 Dose: 20 mg Folic Acid (Folate) 1 mg PO DAILY [facility] Stop: 11/01/16 08:59 Last Admin: 09/09/16 08:32 Dose: 1 mg Lactulose (Cephulac) 30 gm PO TID [facility] Stop: 10/31/16 20:59 Last Admin: 09/09/16 20:08 Dose: 30 gm Levetiracetam (Keppra) 750 mg PO BID [facility] Stop: 11/01/16 08:59 Last Admin: 09/09/16 16:36 Dose: 750 mg Lorazepam (Ativan) 1 mg PO Q6H PRN; Protocol PRN Reason: Anxiety/Agitation Stop: 10/31/16 20:53 Magnesium Hydroxide (Milk Of Magnesia) 30 ml PO HS PRN PRN Reason: Constipation Stop: 10/31/16 20:02 Phenytoin (Dilantin) 200 mg PO HS [facility] Stop: 10/31/16 20:59 Last Admin: 09/09/16 20:09 Dose: 200 mg Phenytoin (Dilantin) 100 mg PO BID [facility] Stop: 11/01/16 08:59 Last Admin: 09/09/16 16:37 Dose: 100 mg Risperidone (Risperdal) 1 mg PO HS [facility] PRN Reason: Protocol Stop: 11/03/16 20:59 Last Admin: 09/09/16 20:09 Dose: 1 mg Zolpidem Tartrate (Ambien) 5 mg PO HS PRN PRN Reason: Insomnia Stop: 10/31/16 20:53 General: alert HEENT: NC/AT, PERRLA, EOMI Neck: Supple Lungs: CTAB Cardiovascular: RRR, Normal S1, Normal S2 Abdomen: soft non-tender, globular, positive bowel sound Extremities: excoriation, contracture Neurological: disorganized Internal Medicine Assmt/Plan - Assessment Assessment: ASTHMA COPD ch RENAL FAILURE obesity - Plan Plan: cont on bp meds low na diet fall precaution meds and labs reviewed rafa rn Nutritional Asmnt/Malnutr-PDOC - Dietary Evaluation Malnutrition Findings (Please click <Entered> for more info): Nutritional Asmnt/Malnutrition Start: 09/08/16 15: 22 Text: Status: Complete Freq: Document 09/08/16 15:22 [facility] (Rec: 09/08/16 15:33 [facility] [id number]) Nutritional Asmnt/Malnutrition Patient General Information Diagnosis Schizoaffective disorder and rule out dementia Pertinent Medical Hx/Surgical Hx Asthma, COPD, hx trauma, elevated ammonia and liver issues Subjective Information Pt is a 51-year-old male admitted with chief complaint of low blood pressure and agitation. Pt was sitting in Day Room during time of visit, able to participate in nutrition interview. Pt appears well nourished with no signs of muscle or fat depletion. Pt is a fair historian, but he was unable to recall his UBW. Pt states he "weighs a lot." Per Chart, wt at [facility] on 06/05/16 was 183#/83.2 kg. Current wt of 190#/86.4 kg is stated, unable to measure at this time. Current Diet Order/ Nutrition Support MIGUEL, low fat Patient / S.O Can Pertinent Medications Lipitor, Cephulac, Levaquin, Risperdal Pertinent Labs Reviewed Nutritional Hx/Data Height 1.83 m Height (Calculated Centimeters) 182.9 Current Weight (lbs) 86.183 kg Weight (Calculated Kilograms) 86.2 Weight (Calculated Grams) 90098.6 Usual body Weight (lbs) 183 % Usual Body Weight 104 [place] Body Weight 178 % [place] Body Weight 107 Recent Weight Change No Weight Status Approriate GI Symptoms GI Symptoms None Food Allergies No Cultural/Ethnic/Methodist Belief No cultural or cheondoism beliefs provided. Usual diet at home MIGUEL, low fat with high protein nourishment 4 oz TID, no change in appetite Skin Integrity/Comment: Saulo 20. Skin intact. Current %PO Good (75-100%) Estimated Nutritional Goals Calories/Kcals/Kg Based on UBW 83.2 kg Kcals Calculated 9642-7348 kcals/day (25-30 kcals/kg) Protein g/kg: Based on UBW 83.2 kg Protein Calculated 67-83 gm/day (0.8-1 gm/kg) Fluid: ml 7641-6390 ml/day (30-35 ml/day ) Nutritional Problem 1. Problem Problem No nutritional problems at this time. Malnutrition Alert Is there a minimum of two criteria No selected? Query Text:Check all the applicable criteria. A minimum of two criteria are recommended for diagnosis of either severe or non-severe malnutrition. Malnutrition Related to Morbid Obesity Malnutrition related to morbid obesity No Intervention/Recommendation Comments 1. Continue with current diet as it is adequate to meet estimated nutritional needs. Expected Outcomes/Goals Expected Outcomes/Goals Have pt meet at least 75% of estimated nutritional needs. Physician Parameters for PEM Normal Weight % 90% - 110% (Normal) Body Mass Index (BMI) 19 - 24 (Normal) 03/15/17 15:32 Dietitian Notes by Celina Simon Nutrition Note Initial Nutrition Assessment completed by Celina Simon on 09/08/16. Please refer to nutrition assessment under Patient Care tab of EMR. No nutritional problems at this time. Nutrition Interventions: 1. Continue with current diet as it is adequate to meet estimated nutritional needs. F/U in 7 days as Low risk, 09/15. Initialized on 09/08/16 15:32 - END OF NOTE
[2016-09-10] MEDS: Lactulose 10 Gm/15 mL 30mL UDC PO SCH ×2 (08:21→14:28)
[2016-09-10] MEDS: Albuterol Nebulizer 2.5mg/3mL HHN SCH ×3 (09:02→15:05)
--- NOTE | 2016-09-10 14:22 | Internal Medicine Prog Note ---
Internal Medicine Subjective - Subjective Service Date: 09/10/16 Patient seen and examined:: with staff Patient is:: awake Per staff patient is:: no adverse event Internal Medicine Objective - Physical Exam Vitals and I&O: Vital Signs Temp 97.5 F 09/10/16 10:37 Pulse 70 09/10/16 11:01 Resp 18 09/10/16 11:01 BP 126/67 09/10/16 10:37 Pulse Ox 96 09/10/16 11:01 Intake & Output 09/09/16 09/10/16 09/10/16 18:59 06:59 18:59 Intake Total 1000 120 Balance 1000 120 Intake: Oral 1000 120 Other: # Voids 3 3 # Bowel Movements 1 Active Medications: Current Medications Acetaminophen (Tylenol) 650 mg PO Q4HR PRN PRN Reason: Pain or Fever >101 Stop: 10/31/16 20:03 Al Hydrox/Mg Hydrox/Simethicone (Maalox) 30 ml PO Q4HR PRN PRN Reason: GI DISTRESS Stop: 10/31/16 20:03 Albuterol Sulfate (Albuterol 2.5mg/3ml Neb Ud) 2.5 mg HHN QIDRT [facility] Stop: 11/01/16 06:59 Last Admin: 09/10/16 11:00 Dose: 2.5 mg Aspirin (Ecotrin) 81 mg PO DAILY [facility] Stop: 11/01/16 08:59 Last Admin: 09/10/16 08:22 Dose: 81 mg Atorvastatin Calcium (Lipitor) 20 mg PO [facility] PRN Reason: Protocol Stop: 10/31/16 20:59 Last Admin: 09/09/16 20:09 Dose: 20 mg Buspirone HCl (Buspar) 5 mg PO BID [facility] PRN Reason: Protocol Stop: 11/07/16 16:59 Last Admin: 09/10/16 08:22 Dose: 5 mg Famotidine (Pepcid) 20 mg PO DAILY [facility] Stop: 11/01/16 08:59 Last Admin: 09/10/16 08:22 Dose: 20 mg Folic Acid (Folate) 1 mg PO DAILY [facility] Stop: 11/01/16 08:59 Last Admin: 09/10/16 08:22 Dose: 1 mg Lactulose (Cephulac) 30 gm PO TID [facility] Stop: 10/31/16 20:59 Last Admin: 09/10/16 08:21 Dose: 30 gm Levetiracetam (Keppra) 750 mg PO BID [facility] Stop: 11/01/16 08:59 Last Admin: 09/10/16 08:23 Dose: 750 mg Lorazepam (Ativan) 1 mg PO Q6H PRN; Protocol PRN Reason: Anxiety/Agitation Stop: 10/31/16 20:53 Magnesium Hydroxide (Milk Of Magnesia) 30 ml PO HS PRN PRN Reason: Constipation Stop: 10/31/16 20:02 Phenytoin (Dilantin) 200 mg PO HS [facility] Stop: 10/31/16 20:59 Last Admin: 09/09/16 20:09 Dose: 200 mg Phenytoin (Dilantin) 100 mg PO BID [facility] Stop: 11/01/16 08:59 Last Admin: 09/10/16 08:22 Dose: 100 mg Risperidone (Risperdal) 1 mg PO HS [facility] PRN Reason: Protocol Stop: 11/03/16 20:59 Last Admin: 09/09/16 20:09 Dose: 1 mg Zolpidem Tartrate (Ambien) 5 mg PO HS PRN PRN Reason: Insomnia Stop: 10/31/16 20:53 General: alert HEENT: NC/AT, PERRLA Neck: Supple Lungs: CTAB Cardiovascular: RRR, Normal S1, Normal S2, without murmur Abdomen: soft non-tender, non-distended Neurological: no change Internal Medicine Assmt/Plan - Assessment Assessment: ASTHMA COPD RENAL FAILURE - Plan Plan: monitor for any respiratory distress monitor BP fall precautions cpm Nutritional Asmnt/Malnutr-PDOC - Dietary Evaluation Malnutrition Findings (Please click <Entered> for more info): Nutritional Asmnt/Malnutrition Start: 09/08/16 15: 22 Text: Status: Complete Freq: Document 09/08/16 15:22 [facility] (Rec: 09/08/16 15:33 [facility] [id number]) Nutritional Asmnt/Malnutrition Patient General Information Diagnosis Schizoaffective disorder and rule out dementia Pertinent Medical Hx/Surgical Hx Asthma, COPD, hx trauma, elevated ammonia and liver issues Subjective Information Pt is a 51-year-old male admitted with chief complaint of low blood pressure and agitation. Pt was sitting in Day Room during time of visit, able to participate in nutrition interview. Pt appears well nourished with no signs of muscle or fat depletion. Pt is a fair historian, but he was unable to recall his UBW. Pt states he "weighs a lot." Per Chart, wt at [facility] on 06/05/16 was 183#/83.2 kg. Current wt of 190#/86.4 kg is stated, unable to measure at this time. Current Diet Order/ Nutrition Support MIGUEL, low fat Patient / S.O Can Pertinent Medications Lipitor, Cephulac, Levaquin, Risperdal Pertinent Labs Reviewed Nutritional Hx/Data Height 6 ft Height (Calculated Centimeters) 182.9 Current Weight (lbs) 190 lb Weight (Calculated Kilograms) 86.2 Weight (Calculated Grams) 69618.6 Usual body Weight (lbs) 183 % Usual Body Weight 104 [place] Body Weight 178 % [place] Body Weight 107 Recent Weight Change No Weight Status Approriate GI Symptoms GI Symptoms None Food Allergies No Cultural/Ethnic/Rastafari Belief No cultural or roman catholic beliefs provided. Usual diet at home MIGUEL, low fat with high protein nourishment 4 oz TID, no change in appetite Skin Integrity/Comment: Saulo Unger. Skin intact. Current %PO Good (75-100%) Estimated Nutritional Goals Calories/Kcals/Kg Based on UBW 83.2 kg Kcals Calculated 9416-8154 kcals/day (25-30 kcals/kg) Protein g/kg: Based on UBW 83.2 kg Protein Calculated 67-83 gm/day (0.8-1 gm/kg) Fluid: ml 2592-8863 ml/day (30-35 ml/day ) Nutritional Problem 1. Problem Problem No nutritional problems at this time. Malnutrition Alert Is there a minimum of two criteria No selected? Query Text:Check all the applicable criteria. A minimum of two criteria are recommended for diagnosis of either severe or non-severe malnutrition. Malnutrition Related to Morbid Obesity Malnutrition related to morbid obesity No Intervention/Recommendation Comments 1. Continue with current diet as it is adequate to meet estimated nutritional needs. Expected Outcomes/Goals Expected Outcomes/Goals Have pt meet at least 75% of estimated nutritional needs. Physician Parameters for PEM Normal Weight % 90% - 110% (Normal) Body Mass Index (BMI) 19 - 24 (Normal) 09/08/16 15:32 Dietitian Notes by Celina Simon Nutrition Note Initial Nutrition Assessment completed by Celina Simon on 09/08/16. Please refer to nutrition assessment under Patient Care tab of EMR. No nutritional problems at this time. Nutrition Interventions: 1. Continue with current diet as it is adequate to meet estimated nutritional needs. F/U in 7 days as Low risk, 09/15. Initialized on 09/08/16 15:32 - END OF NOTE
--- NOTE | 2016-09-10 20:45 | Discharge Summary ---
REASON FOR HOSPITALIZATION: Schizoaffective disorder, psychotic phase; dementia, vascular type or NOS. HISTORY OF PRESENT ILLNESS: The patient is a 51-year-old male who was admitted to the hospital for increased confusion and agitation. The patient initially had an episode of low blood pressure, was in ICU, was medically stabilized, then transferred to [facility] for attempting to strike out at staff. HOSPITALIZATION COURSE: Medications were implemented. The patient was started back on risperidone at 1 mg at nighttime. The patient received supportive measures and his condition slowly improved. BuSpar was added, which helped with his anxiety and restlessness. On 09/10/2016, the patient was discharged back to his shelter facility. The patient did not have any agitation or aggressive behavior. Upon discharge, he did not have any suicidal or homicidal thoughts. He was oriented to person. He knew he was in some kind of hospital, did not know the date, did not know his age. FINAL DIAGNOSES: Schizoaffective disorder; dementia, not otherwise specified; medical history of head trauma and seizure disorder; hypertension; hyperlipidemia; and chronic obstructive pulmonary disease. CONDITION ON DISCHARGE: Improved. No agitation. No aggressive behavior. DISPOSITION: The patient was discharged back to his shelter facility. EXPECTED COURSE OF RECOVERY: Fair with proper supportive management. [facility]# [id number]
== END 2016-09-10 18:30 | DRG 885 ==
LOC: GERO 19:56
DX: F25.9 Schizoaffective disorder, unspecified (principal); F01.50 Vascular dementia, unspecified severity, without behavioral disturbance, psychotic disturbance, mood disturbance, and anxiety; G40.909 Epilepsy, unspecified, not intractable, without status epilepticus; J45.909 Unspecified asthma, uncomplicated; J44.9 Chronic obstructive pulmonary disease, unspecified; N18.9 Chronic kidney disease, unspecified; E66.9 Obesity, unspecified; E78.5 Hyperlipidemia, unspecified; I12.9 Hypertensive chronic kidney disease with stage 1 through stage 4 chronic kidney disease, or unspecified chronic kidney disease; Z91.14 Patient's other noncompliance with medication regimen; Z68.25 Body mass index [BMI] 25.0-25.9, adult
CPT/HCPCS: 90899; 94760; G0410; J7613; Z7610

== ENCOUNTER 2017-08-26 12:19 | Inpatient (IN) | payer MEDICARE, MEDICAID ==
--- NOTE | 2017-08-26 12:34 | ED Physician Chart ---
ED Chief Complaint/HPI - Patient Information Date Seen:: 08/26/17 Time Seen:: 12:34 Chief Complaint:: Abnormal EKG History of Present Illness:: 52 yo male, s/p CABG, was brought from [facility] to ER for evaluation of abnormal EKG which showed right bundle branch block. The patient' s UA two days ago showed evidence of UTI but no antibiotics was given. He was admitted to [facility] from a SNF due to increased agitation with aggressive behavior towards nursing staff. Allergies:: Allergies Allergy/AdvReac Type Severity Reaction Status Date / Time No Known Allergies Allergy Verified 08/31/16 20:37 ED Review of Systems - Review of Systems General/Constitutional: No fever Skin: No rash Head: No headache Eyes: No pain ENT: No nasal drainage Neck: No neck pain Cardio Vascular: No chest pain Pulmonary: No SOB GI: No nausea, No vomiting Musculoskeletal: No bone or joint pain Neurological: Seizure ED Past Medical History - Past Medical History Past Medical History: HTN, Asthma/COPD, PUD/GERD, Seizures, Other (Parkinson's disease, hepatic encephalopathy, anemia, AFib) Social History: Non Smoker, No Alcohol, No Drug Use Surgical History: CABG Family Medical History - Family Member Mother History Unknown: Yes Father History Unknown: Yes ED Physical Exam - Physical Examination General/Constitutional: Awake Head: Atraumatic Eyes: PERRL Skin: No ecchymosis ENMT: Nasal exam nl Neck: No nuchal rigidity Respiratory: No Wheeze/Rhonchi/Rales Cardio Vascular: RRR Other Cardio Vascular comments:: II/ systolic murmur GI: No tenderness/rebounding/guarding Extremities: normal strength in all extremities ED Labs/Radiology/EKG Results - Radiology Results Results: CXR: cardiomegaly ED Assessment - Assessment General Assessment: UTI Abnormal EKG s/p CABG Seizure Hepatic encephalopathy Assessment/Comments:: CBC, CMP EKG, CXR Bactrim DS NS 1L IV bolus ED Septic Shock - . Is Septic Shock (SBP<90, OR Lactate>4 mmol\L) present?: No ED Reassessment (Disposition) - Reassessment Reassessment Condition:: Improved - Patient Disposition Discharge/Transfer:: Acute Care w/in this hosp Admitting Medical Physician:: Derrell Green ED Discharge Plan - Patient Disposition Admit/Discharge/Transfer: Acute Care w/in this hosp
[2017-08-26 14:02] LABS: % BASOPHILS 1.9 % (0.0-2.0); % EOSINOPHILS 2.2 % (0.0-5.0); % LYMPHOCYTES 22.4 % (20.0-50.0); % MONOCYTES 7.7 % (2.0-10.0); % NEUTROPHILS 65.8 % (40.0-80.0); BASOPHILE ABSOLUTE 0.2 Th/cumm (0-0.2); EOSINOPHILE ABSOLUTE 0.2 Th/cmm (0.1-0.4); HEMATOCRIT 46.3 % (41.0-60); HEMOGLOBIN 15.4 gm/dL (12-16); LYMPHOCYTE ABSOLUTE 2.5 Th/cmm (1.5-3.0); MEAN CORPUSCULAR HEMOGLOBIN 33.9 pg (26.0-30.0); MEAN CORPUSCULAR HGB CONC 33.2 pg (28.0-36.0); MEAN PLATELET VOLUME 8.1 fl; MONOCYTE ABSOLUTE 0.9 Th/cmm (0.3-1.0); NEUTROPHILE ABSOLUTE 7.3 Th/cmm (1.8-8.0); PLATELET COUNT 182 Th/cmm (150-400); RED BLOOD COUNT 4.54 Mil/cmm (4.30-5.70); RED CELL DISTRIBUTION WIDTH 12.8 % (11.5-20.0)
[2017-08-26 14:03] LABS: ALB/GLOB RATIO 1.2 (1.0-1.8); ALBUMIN 4.4 gm/dL (4.2-5.5); ALKALINE PHOSPHATASE 79 U/L (34-104); ANION GAP 16.3 (7.0-16.0); BILIRUBIN,TOTAL 0.4 mg/dL (0.3-1.0); BUN - UREA NITROGEN 12 mg/dL (7-25); CALCIUM SERUM 9.8 mg/dL (8.6-10.3); CHLORIDE 101 mEq/L (98-107); CREATININE - SERUM 0.9 mg/dL (0.7-1.3); GFR AFRICAN-AMERICAN > 60.0 ml/min (>90); GFR NON AFRICAN-AMERICAN > 60.0 ml/min; GLUCOSE 72 mg/dL (70-105); POTASSIUM SERUM 4.3 mEq/L (3.5-5.1); SGOT 35 U/L (13-39); SGPT/ALT 39 U/L (7-52); SODIUM SERUM 137 mEq/L (136-145)
[2017-08-26 14:07] LABS: WHITE BLOOD COUNT 11.1 Th/cmm (4.8-10.8)
--- NOTE | 2017-08-26 14:24 | Diagnostic Imaging Report ---
Portable chest x-ray HISTORY: Shortness of breath. The heart is enlarged. There is an abnormal contour in the vicinity of the great vessels along with surgical suture material. Findings presumably related to congenital abnormality. No focal pulmonary processes. IMPRESSION: 1. Cardiomegaly along with findings and surgical changes noted above 2. No focal pulmonary processes
[2017-08-26] MEDS ORDERED: Sodium Chloride 0.9% 1,000 ML IV ONE (14:42)
[2017-08-26] MEDS ORDERED: Sulfamethoxazole/TMP 800/160mg Tab PO ONE (15:46)
[2017-08-26] MEDS ORDERED: Sulfamethoxazole/TMP 800/160mg Tab ONE (17:02)
[2017-08-26] MEDS: D5-0.9%NS 1,000 ML IV SCH (18:00)
[2017-08-26] MEDS ORDERED: Non-Formulary Item 1 EA (Mylanta 30 ML) PO PRN (18:06)
[2017-08-26] MEDS ORDERED: Albuterol Nebulizer 2.5mg/3mL HHN PRN ×2 (18:06→18:10)
[2017-08-26] MEDS ORDERED: Magnesium Hydroxide (MOM) 30 mL UDC PO PRN (18:06)
[2017-08-26] MEDS ORDERED: guaiFENesin 200 MG/10 ML UDC PO PRN (18:10)
[2017-08-26] MEDS ORDERED: Maalox 30 mL Cup PO PRN (18:10)
[2017-08-26] MEDS ORDERED: Levofloxacin 500mg/100mL 500 MG/100 ML BAG IV ONE (18:15)
--- NOTE | 2017-08-26 19:21 | History & Physical ---
ADMIT DATE: 08/26/2017 CHIEF COMPLAINT: Abnormal EKG, increasing agitation, recent UTI. HISTORY OF PRESENT ILLNESS: This is a 52-year-old -[place] male with history of schizoaffective disorder, seizure, hypertension, hypercholesterolemia, encephalopathy, admitted from inpatient psych unit secondary to above complaints. Apparently, the patient noted to have bundle branch block and getting more agitated in spite of being on p.o. antibiotic for his UTI. The patient is a poor historian. PAST MEDICAL HISTORY: As mentioned in history of present illness. PAST SURGICAL HISTORY: Unable to obtain from the patient. ALLERGIES: No known drug allergies. MEDICATIONS: albuterol, Atrovent, atorvastatin, gabapentin, folic acid, lactulose, lorazepam, metoprolol, Bactrim, Dilantin, and Risperdal. FAMILY HISTORY: Noncontributory. SOCIAL HISTORY: The patient is a residential patient, requiring 24-hour total care. REVIEW OF SYSTEMS: This is limited secondary to the patient's current mental state. We will try to obtain more detailed review of system at a later date by talking to family member in [place], [place], number [phone], and also try to get more information from Dr. Dawson, who was the attending at the inpatient psych. PHYSICAL EXAMINATION: VITAL SIGNS: Blood pressure 128/64, respirations 16, pulse 66, temperature 97.8. GENERAL: Elderly male, appears chronically ill. NECK: Supple. No mass. LUNGS: Equal breath sounds, few rhonchi. HEART: Regular rate and rhythm with appreciable murmurs. ABDOMEN: Soft, globular. EXTREMITIES: Positive excoriations. NEUROLOGIC: Limited. LABORATORY DATA: WBC 11.1, hemoglobin 13, platelets 182. BUN 12, creatinine 0.9. Troponin was negative. EKG is not available for review. ASSESSMENT: 1. Cardiac arrhythmia. 2. Urinary tract infection. 3. Leukocytosis. 4. Increasing agitation. 5. Chronic obstructive pulmonary disease. 6. Schizoaffective disorder. 7. Seizure. 8. Hypertension. 9. Hypercholesterolemia. 10. Elevated ammonia. PLAN: We will check the patient's ammonia level. We will continue lactulose. We will make some adjustment. Continue on aggressive IV hydration. We will adjust the patient's psychotropic medication. We will followup with the urine and C and S. We will try to get the culture as well. Continue with current care. We will followup with consult and recommendations. JOB# [id number]
[2017-08-26] MEDS: Atorvastatin Calcium 10 MG TAB PO SCH (21:18)
[2017-08-26] MEDS: Lactulose 10 Gm/15 mL 30mL UDC PO SCH ×2 (21:19→21:27)
[2017-08-27 07:10] LABS: URINE MICROSCOPIC INDICATED? YES; URINE SOURCE CLEAN C
[2017-08-27 08:07] LABS: % BASOPHILS 0.9 % (0.0-2.0); % EOSINOPHILS 2.2 % (0.0-5.0); % LYMPHOCYTES 25.5 % (20.0-50.0); % MONOCYTES 9.1 % (2.0-10.0); % NEUTROPHILS 62.3 % (40.0-80.0); BASOPHILE ABSOLUTE 0.1 Th/cumm (0-0.2); EOSINOPHILE ABSOLUTE 0.1 Th/cmm (0.1-0.4); HEMATOCRIT 45.5 % (41.0-60); HEMOGLOBIN 15.2 gm/dL (12-16); LYMPHOCYTE ABSOLUTE 1.7 Th/cmm (1.5-3.0); MEAN CORPUSCULAR HEMOGLOBIN 33.8 pg (26.0-30.0); MEAN CORPUSCULAR HGB CONC 33.5 pg (28.0-36.0); MEAN PLATELET VOLUME 7.6 fl; MONOCYTE ABSOLUTE 0.6 Th/cmm (0.3-1.0); PLATELET COUNT 172 Th/cmm (150-400); RED CELL DISTRIBUTION WIDTH 12.6 % (11.5-20.0)
[2017-08-27 08:09] LABS: WHITE BLOOD COUNT 6.5 Th/cmm (4.8-10.8)
[2017-08-27 08:26] LABS: URINE BILIRUBIN NEGATIVE (NEGATIVE); URINE BLOOD TRACE (NEGATIVE); URINE GLUCOSE (UA) NEGATIVE (NEGATIVE); URINE KETONE NEGATIVE (NEGATIVE); URINE LEUKOCYTE ESTERASE TRACE (NEGATIVE); URINE NITRATE NEGATIVE (NEGATIVE); URINE PROTEIN NEGATIVE (NEGATIVE); URINE UROBILINOGEN 0.2 E.U./dL (0.2 - 1.0)
[2017-08-27 08:32] LABS: URINE CLARITY CLEAR (CLEAR); URINE COLOR YELLOW
[2017-08-27 08:38] LABS: URINE BACTERIA FEW /hpf (NONE SEEN); URINE EPITHELIAL CELLS OCCASIONAL /lpf (FEW); URINE RBC 0-2 /hpf (0-5); URINE WBC 0-2 /hpf (0-5)
[2017-08-27] MEDS: Lactulose 10 Gm/15 mL 30mL UDC PO SCH ×3 (08:40→21:53)
[2017-08-27 09:32] LABS: ANION GAP 8.3 (7.0-16.0); BUN - UREA NITROGEN 11 mg/dL (7-25); CALCIUM SERUM 9.3 mg/dL (8.6-10.3); CHLORIDE 107 mEq/L (98-107); CREATININE - SERUM 0.8 mg/dL (0.7-1.3); GFR AFRICAN-AMERICAN > 60.0 ml/min (>90); GFR NON AFRICAN-AMERICAN > 60.0 ml/min; GLUCOSE 90 mg/dL (70-105); POTASSIUM SERUM 4.3 mEq/L (3.5-5.1); SODIUM SERUM 137 mEq/L (136-145)
--- NOTE | 2017-08-27 15:03 | Internal Medicine Prog Note ---
Internal Medicine Subjective - Subjective Patient seen and examined:: with staff, chart reviewed Patient is:: awake, verbal, interactive Patient Complaints of:: congestion, constipation Per staff patient has:: no adverse event, no episodes of fall, poor appetite, poor oral intake, agitated, noncompliant, refusing care, refusing labs Internal Medicine Objective - Results Result Diagrams: 08/27/17 07:39 08/27/17 07:39 Recent Labs: Laboratory Last Values WBC 6.5 Th/cmm (4.8-10.8) D 08/27/17 07:39 RBC 4.50 Mil/cmm (4.30-5.70) 08/27/17 07:39 Hgb 15.2 gm/dL (12-16) 08/27/17 07:39 Hct 45.5 % (41.0-60) 08/27/17 07:39 MCV 101.0 fl (80-99) H 08/27/17 07:39 MCH 33.8 pg (26.0-30.0) H 08/27/17 07:39 MCHC Differential 33.5 pg (28.0-36.0) 08/27/17 07:39 RDW 12.6 % (11.5-20.0) 08/27/17 07:39 Plt Count 172 Th/cmm (150-400) 08/27/17 07:39 MPV 7.6 fl 08/27/17 07:39 Neutrophils % 62.3 % (40.0-80.0) 08/27/17 07:39 Lymphocytes % 25.5 % (20.0-50.0) 08/27/17 07:39 Monocytes % 9.1 % (2.0-10.0) 08/27/17 07:39 Eosinophils % 2.2 % (0.0-5.0) 08/27/17 07:39 Basophils % 0.9 % (0.0-2.0) 08/27/17 07:39 Sodium 137 mEq/L (136-145) 08/27/17 07:39 Potassium 4.3 mEq/L (3.5-5.1) 08/27/17 07:39 Chloride 107 mEq/L (98-107) 08/27/17 07:39 Carbon Dioxide 26.0 mEq/L (21.0-31.0) 08/27/17 07:39 Anion Gap 8.3 (7.0-16.0) 08/27/17 07:39 BUN 11 mg/dL (7-25) 08/27/17 07:39 Creatinine 0.8 mg/dL (0.7-1.3) 08/27/17 07:39 Est GFR ( Amer) > 60.0 ml/min (>90) 08/27/17 07:39 Est GFR (Non-Af Amer) > 60.0 ml/min 08/27/17 07:39 BUN/Creatinine Ratio 13.8 08/27/17 07:39 Glucose 90 mg/dL (70-105) 08/27/17 07:39 Calcium 9.3 mg/dL (8.6-10.3) 08/27/17 07:39 Total Bilirubin 0.4 mg/dL (0.3-1.0) 08/26/17 13:26 AST 35 U/L (13-39) 08/26/17 13:26 ALT 39 U/L (7-52) 08/26/17 13:26 Alkaline Phosphatase 79 U/L (34-104) 08/26/17 13:26 Ammonia < 10 umol/L (16-53) L 08/27/17 07:39 Troponin I < 0.01 ng/mL (0.01-0.05) L 08/26/17 13:26 B-Natriuretic Peptide 6.3 pg/mL (5.0-100.0) 08/26/17 13:26 Total Protein 8.0 gm/dL (6.0-8.3) 08/26/17 13:26 Albumin 4.4 gm/dL (4.2-5.5) 08/26/17 13:26 Globulin 3.6 gm/dL 08/26/17 13:26 Albumin/Globulin Ratio 1.2 (1.0-1.8) 08/26/17 13:26 TSH 1.12 uIU/ml (0.34-5.60) 08/26/17 13:26 Urine Source CLEAN C 08/27/17 04:20 Urine Color YELLOW 08/27/17 04:20 Urine Clarity CLEAR (CLEAR) 08/27/17 04:20 Urine pH 6.0 (4.6 - 8.0) 08/27/17 04:20 Ur Specific [place] <= 1.005 (1.005-1.030) 08/27/17 04:20 Urine Protein NEGATIVE mg/dL (NEGATIVE) 08/27/17 04:20 Urine Glucose (UA) NEGATIVE mg/dL (NEGATIVE) 08/27/17 04:20 Urine Ketones NEGATIVE mg/dL (NEGATIVE) 08/27/17 04:20 Urine Blood TRACE (NEGATIVE) 08/27/17 04:20 Urine Nitrate NEGATIVE (NEGATIVE) 08/27/17 04:20 Urine Bilirubin NEGATIVE (NEGATIVE) 08/27/17 04:20 Urine Urobilinogen 0.2 E.U./dL (0.2 - 1.0) 08/27/17 04:20 Ur Leukocyte Esterase TRACE (NEGATIVE) H 08/27/17 04:20 Urine RBC 0-2 /hpf (0-5) H 08/27/17 04:20 Urine WBC 0-2 /hpf (0-5) 08/27/17 04:20 Ur Epithelial Cells OCCASIONAL /lpf (FEW) 08/27/17 04:20 Urine Bacteria FEW /hpf (NONE SEEN) 08/27/17 04:20 - Physical Exam Vitals and I&O: Vital Signs Temp 98.5 F 08/27/17 12:00 Pulse 71 08/27/17 12:00 Resp 17 08/27/17 12:00 BP 92/60 08/27/17 12:00 Pulse Ox 96 08/27/17 12:00 Intake & Output 08/26/17 08/27/17 08/27/17 18:59 06:59 18:59 Intake Total 200 Balance 200 Weight (lbs) 86.183 kg Intake: Oral 200 Active Medications: Current Medications Acetaminophen (Tylenol) 650 mg PO Q4H PRN PRN Reason: Pain Or Fever above 101 Stop: 10/25/17 18:09 Al Hydrox/Mg Hydrox/Simethicone (Maalox) 30 ml PO Q6H PRN PRN Reason: Dyspepsia Stop: 10/25/17 18:09 Albuterol Sulfate (Albuterol 2.5mg/3ml Neb Ud) 2.5 mg HHN Q2HRT PRN PRN Reason: Shortness of Breath or Wheeze Stop: 10/25/17 18:09 Aspirin (Ecotrin) 81 mg PO DAILY KEL Stop: 10/26/17 08:59 Last Admin: 08/27/17 08:40 Dose: 81 mg Atorvastatin Calcium (Lipitor) 20 mg PO HS KEL PRN Reason: Protocol Stop: 10/25/17 20:59 Last Admin: 08/26/17 21:18 Dose: 20 mg Famotidine (Pepcid) 20 mg PO BID KEL Stop: 10/26/17 08:59 Last Admin: 08/27/17 08:40 Dose: 20 mg Folic Acid (Folate) 1 mg PO DAILY KEL Stop: 10/26/17 08:59 Last Admin: 08/27/17 08:39 Dose: 1 mg Gabapentin (Neurontin) 300 mg PO TID KEL Stop: 10/25/17 20:59 Last Admin: 08/27/17 14:47 Dose: 300 mg Guaifenesin (Robitussin) 200 mg PO Q4HR PRN PRN Reason: Cough or Congestion Stop: 10/25/17 18:09 Heparin Sodium (Porcine) (Heparin) 5,000 units SUBQ Q12HR KEL Stop: 10/25/17 20:59 Last Admin: 08/27/17 08:40 Dose: Not Given Dextrose/Sodium Chloride (D5-0.9%Ns) 1,000 mls @ 100 mls/hr IV .Q10H [facility] Stop: 10/25/17 18:14 Last Admin: 08/26/17 18:00 Dose: Not Given Levofloxacin (Levaquin Pb) 500 mg in 100 mls @ 100 mls/hr IV Q24HR [facility] Stop: 10/26/17 20:59 Lactulose (Cephulac) 60 gm PO TID KEL Stop: 10/25/17 20:59 Last Admin: 08/27/17 14:47 Dose: 60 gm Latanoprost (Xalatan 0.005% Ophth Soln) 1 drop EACH EYE HS [facility] Stop: 10/25/17 20:59 Last Admin: 08/26/17 21:20 Dose: Not Given Levetiracetam (Keppra) 750 mg PO Q12H KEL Stop: 10/25/17 18:14 Last Admin: 08/27/17 06:26 Dose: 750 mg Lorazepam (Ativan) 1 mg PO Q6H PRN; Protocol PRN Reason: Anxiety/Agitation Stop: 10/25/17 18:05 Lorazepam (Ativan) 1 mg IV Q4H PRN; Protocol PRN Reason: Seizure Stop: 10/25/17 18:09 Magnesium Hydroxide (Milk Of Magnesia) 30 ml PO DAILY PRN PRN Reason: Constipation Stop: 10/25/17 18:05 Metoprolol Tartrate (Lopressor) 25 mg PO BID KEL Stop: 10/26/17 08:59 Last Admin: 08/27/17 08:39 Dose: 25 mg Ondansetron HCl (Zofran) 4 mg IV Q8H PRN PRN Reason: Nausea / Vomiting Stop: 10/25/17 18:09 Phenytoin (Dilantin) 200 mg PO BID KEL Stop: 10/26/17 08:59 Last Admin: 08/27/17 08:39 Dose: 200 mg Phenytoin (Dilantin) 100 mg PO HS [facility] Stop: 10/25/17 20:59 Last Admin: 08/26/17 21:19 Dose: 100 mg Risperidone (Risperdal) 0.5 mg PO HS [facility] PRN Reason: Protocol Stop: 10/25/17 20:59 Last Admin: 08/26/17 21:19 Dose: 0.5 mg Risperidone (Risperdal) 0.5 mg PO BID KEL PRN Reason: Protocol Stop: 10/26/17 08:59 Last Admin: 08/27/17 08:40 Dose: 0.5 mg General: demented HEENT: NC/AT, PERRLA Neck: Supple, No JVD, No LAD Lungs: congested, rales Cardiovascular: RRR, Normal S1, Normal S2 Abdomen: soft, non-tender, globular, positive bowel sound Extremities: excoriation Neurological: no change, disorganized, unable to follow command Internal Medicine Assmt/Plan - Assessment Assessment: ASSESSMENT: 1. Cardiac arrhythmia. 2. Urinary tract infection. 3. Leukocytosis. 4. Increasing agitation. 5. Chronic obstructive pulmonary disease. 6. Schizoaffective disorder. 7. Seizure. 8. Hypertension. 9. Hypercholesterolemia. 10. Elevated ammonia. PLAN: We will check the patient's ammonia level. We will continue lactulose. We will make some adjustment. Continue on aggressive IV hydration. We will adjust the patient's psychotropic medication. We will followup with the urine and C and S. We will try to get the culture as well. Continue with current care. We will followup with consult and recommendations. - Plan Plan: [facility] follow up cont c current care rafa rn
[2017-08-27] MEDS: Atorvastatin Calcium 10 MG TAB PO SCH (21:54)
[2017-08-28] MEDS: Levofloxacin 500mg/100mL Premix Bag IV SCH ×2 (05:35→21:05)
[2017-08-28] MEDS: Lactulose 10 Gm/15 mL 30mL UDC PO SCH ×3 (09:23→21:00)
--- NOTE | 2017-08-28 15:33 | Internal Medicine Prog Note ---
Internal Medicine Subjective - Subjective Patient seen and examined:: with staff, chart reviewed Patient is:: awake, verbal, interactive Patient Complaints of:: congestion, constipation Per staff patient has:: no adverse event, no episodes of fall, poor appetite, poor oral intake, agitated, noncompliant, refusing care, refusing labs Internal Medicine Objective - Results Result Diagrams: 08/27/17 07:39 08/27/17 07:39 Recent Labs: Laboratory Last Values WBC 6.5 Th/cmm (4.8-10.8) D 08/27/17 07:39 RBC 4.50 Mil/cmm (4.30-5.70) 08/27/17 07:39 Hgb 15.2 gm/dL (12-16) 08/27/17 07:39 Hct 45.5 % (41.0-60) 08/27/17 07:39 MCV 101.0 fl (80-99) H 08/27/17 07:39 MCH 33.8 pg (26.0-30.0) H 08/27/17 07:39 MCHC Differential 33.5 pg (28.0-36.0) 08/27/17 07:39 RDW 12.6 % (11.5-20.0) 08/27/17 07:39 Plt Count 172 Th/cmm (150-400) 08/27/17 07:39 MPV 7.6 fl 08/27/17 07:39 Neutrophils % 62.3 % (40.0-80.0) 08/27/17 07:39 Lymphocytes % 25.5 % (20.0-50.0) 08/27/17 07:39 Monocytes % 9.1 % (2.0-10.0) 08/27/17 07:39 Eosinophils % 2.2 % (0.0-5.0) 08/27/17 07:39 Basophils % 0.9 % (0.0-2.0) 08/27/17 07:39 Sodium 137 mEq/L (136-145) 08/27/17 07:39 Potassium 4.3 mEq/L (3.5-5.1) 08/27/17 07:39 Chloride 107 mEq/L (98-107) 08/27/17 07:39 Carbon Dioxide 26.0 mEq/L (21.0-31.0) 08/27/17 07:39 Anion Gap 8.3 (7.0-16.0) 08/27/17 07:39 BUN 11 mg/dL (7-25) 08/27/17 07:39 Creatinine 0.8 mg/dL (0.7-1.3) 08/27/17 07:39 Est GFR ( Amer) > 60.0 ml/min (>90) 08/27/17 07:39 Est GFR (Non-Af Amer) > 60.0 ml/min 08/27/17 07:39 BUN/Creatinine Ratio 13.8 08/27/17 07:39 Glucose 90 mg/dL (70-105) 08/27/17 07:39 Calcium 9.3 mg/dL (8.6-10.3) 08/27/17 07:39 Total Bilirubin 0.4 mg/dL (0.3-1.0) 08/26/17 13:26 AST 35 U/L (13-39) 08/26/17 13:26 ALT 39 U/L (7-52) 08/26/17 13:26 Alkaline Phosphatase 79 U/L (34-104) 08/26/17 13:26 Ammonia < 10 umol/L (16-53) L 08/27/17 07:39 Troponin I < 0.01 ng/mL (0.01-0.05) L 08/26/17 13:26 B-Natriuretic Peptide 6.3 pg/mL (5.0-100.0) 08/26/17 13:26 Total Protein 8.0 gm/dL (6.0-8.3) 08/26/17 13:26 Albumin 4.4 gm/dL (4.2-5.5) 08/26/17 13:26 Globulin 3.6 gm/dL 08/26/17 13:26 Albumin/Globulin Ratio 1.2 (1.0-1.8) 08/26/17 13:26 TSH 1.12 uIU/ml (0.34-5.60) 08/26/17 13:26 Urine Source CLEAN C 08/27/17 04:20 Urine Color YELLOW 08/27/17 04:20 Urine Clarity CLEAR (CLEAR) 08/27/17 04:20 Urine pH 6.0 (4.6 - 8.0) 08/27/17 04:20 Ur Specific [place] <= 1.005 (1.005-1.030) 08/27/17 04:20 Urine Protein NEGATIVE mg/dL (NEGATIVE) 08/27/17 04:20 Urine Glucose (UA) NEGATIVE mg/dL (NEGATIVE) 08/27/17 04:20 Urine Ketones NEGATIVE mg/dL (NEGATIVE) 08/27/17 04:20 Urine Blood TRACE (NEGATIVE) 08/27/17 04:20 Urine Nitrate NEGATIVE (NEGATIVE) 08/27/17 04:20 Urine Bilirubin NEGATIVE (NEGATIVE) 08/27/17 04:20 Urine Urobilinogen 0.2 E.U./dL (0.2 - 1.0) 08/27/17 04:20 Ur Leukocyte Esterase TRACE (NEGATIVE) H 08/27/17 04:20 Urine RBC 0-2 /hpf (0-5) H 08/27/17 04:20 Urine WBC 0-2 /hpf (0-5) 08/27/17 04:20 Ur Epithelial Cells OCCASIONAL /lpf (FEW) 08/27/17 04:20 Urine Bacteria FEW /hpf (NONE SEEN) 08/27/17 04:20 - Physical Exam Vitals and I&O: Vital Signs Temp 96.2 F 08/28/17 13:00 Pulse 69 08/28/17 13:00 Resp 18 08/28/17 14:49 BP 98/66 08/28/17 13:00 Pulse Ox 98 08/28/17 13:00 Intake & Output 08/27/17 08/28/17 08/28/17 18:59 06:59 18:59 Intake Total 1600 Balance 1600 Weight (lbs) 100.244 kg Intake: Oral 1600 Other: # Voids 1 # Bowel Movements 0 Active Medications: Current Medications Acetaminophen (Tylenol) 650 mg PO Q4H PRN PRN Reason: Pain Or Fever above 101 Stop: 10/25/17 18:09 Al Hydrox/Mg Hydrox/Simethicone (Maalox) 30 ml PO Q6H PRN PRN Reason: Dyspepsia Stop: 10/25/17 18:09 Albuterol Sulfate (Albuterol 2.5mg/3ml Neb Ud) 2.5 mg HHN Q2HRT PRN PRN Reason: Shortness of Breath or Wheeze Stop: 10/25/17 18:09 Aspirin (Ecotrin) 81 mg PO DAILY KEL Stop: 10/26/17 08:59 Last Admin: 08/28/17 09:24 Dose: 81 mg Atorvastatin Calcium (Lipitor) 20 mg PO HS KEL PRN Reason: Protocol Stop: 10/25/17 20:59 Last Admin: 08/27/17 21:54 Dose: 20 mg Famotidine (Pepcid) 20 mg PO BID KEL Stop: 10/26/17 08:59 Last Admin: 08/28/17 09:24 Dose: 20 mg Folic Acid (Folate) 1 mg PO DAILY KEL Stop: 10/26/17 08:59 Last Admin: 08/28/17 09:24 Dose: 1 mg Gabapentin (Neurontin) 300 mg PO TID KEL Stop: 10/25/17 20:59 Last Admin: 08/28/17 13:26 Dose: 300 mg Guaifenesin (Robitussin) 200 mg PO Q4HR PRN PRN Reason: Cough or Congestion Stop: 10/25/17 18:09 Heparin Sodium (Porcine) (Heparin) 5,000 units SUBQ Q12HR KEL Stop: 10/25/17 20:59 Last Admin: 08/28/17 09:27 Dose: Not Given Dextrose/Sodium Chloride (D5-0.9%Ns) 1,000 mls @ 100 mls/hr IV .Q10H ON [facility] OF [facility] Stop: 10/25/17 18:14 Last Admin: 08/26/17 18:00 Dose: Not Given Levofloxacin (Levaquin Pb) 500 mg in 100 mls @ 100 mls/hr IV Q24HR KEL Stop: 10/26/17 20:59 Last Admin: 08/28/17 05:35 Dose: Not Given Lactulose (Cephulac) 60 gm PO TID KEL Stop: 10/25/17 20:59 Last Admin: 08/28/17 13:26 Dose: 60 gm Latanoprost (Xalatan 0.005% Ophth Soln) 1 drop EACH EYE HS KEL Stop: 10/25/17 20:59 Last Admin: 08/28/17 05:35 Dose: Not Given Levetiracetam (Keppra) 750 mg PO Q12H KEL Stop: 10/25/17 18:14 Last Admin: 08/28/17 06:44 Dose: 750 mg Lorazepam (Ativan) 1 mg PO Q6H PRN; Protocol PRN Reason: Anxiety/Agitation Stop: 10/25/17 18:05 Lorazepam (Ativan) 1 mg IV Q4H PRN; Protocol PRN Reason: Seizure Stop: 10/25/17 18:09 Magnesium Hydroxide (Milk Of Magnesia) 30 ml PO DAILY PRN PRN Reason: Constipation Stop: 10/25/17 18:05 Metoprolol Tartrate (Lopressor) 25 mg PO BID [facility] Stop: 10/26/17 08:59 Last Admin: 08/28/17 09:24 Dose: 25 mg Ondansetron HCl (Zofran) 4 mg IV Q8H PRN PRN Reason: Nausea / Vomiting Stop: 10/25/17 18:09 Phenytoin (Dilantin) 200 mg PO BID [facility] Stop: 10/26/17 08:59 Last Admin: 08/28/17 09:23 Dose: 200 mg Phenytoin (Dilantin) 100 mg PO HS [facility] Stop: 10/25/17 20:59 Last Admin: 08/28/17 05:34 Dose: Not Given Risperidone (Risperdal) 0.5 mg PO HS ON [facility] PRN Reason: Protocol Stop: 10/25/17 20:59 Last Admin: 08/27/17 21:53 Dose: 0.5 mg Risperidone (Risperdal) 0.5 mg PO BID ON [facility] PRN Reason: Protocol Stop: 10/26/17 08:59 Last Admin: 08/28/17 09:24 Dose: 0.5 mg General: demented HEENT: NC/AT, PERRLA Neck: Supple, No JVD, No LAD Lungs: congested, rales Cardiovascular: RRR, Normal S1, Normal S2 Abdomen: soft, non-tender, globular, positive bowel sound Extremities: excoriation Neurological: no change, disorganized, unable to follow command Internal Medicine Assmt/Plan - Assessment Assessment: ASSESSMENT: 1. Cardiac arrhythmia. 2. Urinary tract infection. 3. Leukocytosis. 4. Increasing agitation. 5. Chronic obstructive pulmonary disease. 6. Schizoaffective disorder. 7. Seizure. 8. Hypertension. 9. Hypercholesterolemia. 10. Elevated ammonia. PLAN: We will check the patient's ammonia level. We will continue lactulose. We will make some adjustment. Continue on aggressive IV hydration. We will adjust the patient's psychotropic medication. We will followup with the urine and C and S. We will try to get the culture as well. Continue with current care. We will followup with consult and recommendations. - Plan [facility] current care rafa rn check labs in am
[2017-08-28] MEDS: Atorvastatin Calcium 10 MG TAB PO SCH (21:01)
[2017-08-29 06:06] LABS: % BASOPHILS 2.4 % (0.0-2.0); % EOSINOPHILS 2.6 % (0.0-5.0); % LYMPHOCYTES 35.2 % (20.0-50.0); % MONOCYTES 6.1 % (2.0-10.0); % NEUTROPHILS 53.7 % (40.0-80.0); BASOPHILE ABSOLUTE 0.2 Th/cumm (0-0.2); EOSINOPHILE ABSOLUTE 0.2 Th/cmm (0.1-0.4); HEMOGLOBIN 15.7 gm/dL (12-16); LYMPHOCYTE ABSOLUTE 2.9 Th/cmm (1.5-3.0); MEAN CELL VOLUME 101.9 fl (80-99); MEAN CORPUSCULAR HEMOGLOBIN 32.7 pg (26.0-30.0); MEAN CORPUSCULAR HGB CONC 32.1 pg (28.0-36.0); MEAN PLATELET VOLUME 8.4 fl; MONOCYTE ABSOLUTE 0.5 Th/cmm (0.3-1.0); NEUTROPHILE ABSOLUTE 4.5 Th/cmm (1.8-8.0); PLATELET COUNT 157 Th/cmm (150-400); RED CELL DISTRIBUTION WIDTH 12.6 % (11.5-20.0)
[2017-08-29 06:10] LABS: WHITE BLOOD COUNT 8.3 Th/cmm (4.8-10.8)
[2017-08-29 06:26] LABS: ANION GAP 6.2 (7.0-16.0); BUN - UREA NITROGEN 14 mg/dL (7-25); CALCIUM SERUM 9.4 mg/dL (8.6-10.3); CHLORIDE 104 mEq/L (98-107); CREATININE - SERUM 0.9 mg/dL (0.7-1.3); GFR AFRICAN-AMERICAN > 60.0 ml/min (>90); GFR NON AFRICAN-AMERICAN > 60.0 ml/min; GLUCOSE 92 mg/dL (70-105); POTASSIUM SERUM 4.2 mEq/L (3.5-5.1); SODIUM SERUM 135 mEq/L (136-145)
[2017-08-29] MEDS: Lactulose 10 Gm/15 mL 30mL UDC PO SCH ×2 (09:02→15:05)
[2017-08-29] MEDS: D5-0.9%NS 1,000 ML IV SCH (09:09)
--- NOTE | 2017-08-29 18:20 | Consultation ---
DATE OF CONSULTATION: 08/29/2017 The patient was seen, chart reviewed, discussed with staff. HISTORY OF PRESENT ILLNESS: The patient is a 52-year-old male with a history of psychosis and multiple medical problems, was initially at [facility] and noted to have some changes in his EKG. The patient was sent to the ER. Currently admitted to medical floor. The patient with urinary tract infection. The patient has been confused, irritable, some agitation at times. His risperidone was started recently in a psychiatric hospital. His current dose of 0.5 mg twice a day. The patient is a poor historian overall. PAST PSYCHIATRIC HISTORY: Multiple hospitalizations, history of schizoaffective disorder. PAST MEDICAL HISTORY: Asthmatic as per H and P. PSYCHOSOCIAL HISTORY: The patient resides at [facility] complete care. MENTAL STATUS EXAMINATION: The patient is oriented to person, knew he was in some kind of hospital, did not know the name of the hospital. Speech is minimal short sentences, slightly dysarthric. The patient is slightly guarded, paranoid. Insight is poor. Judgment impaired. ASSESSMENT: Schizoaffective disorder. PLAN: We will continue stabilization. Continue risperidone 0.5 mg p.o. b.i.d. Monitor condition closely. Continue Ativan 1 mg p.o. every 6 hours p.r.n. anxiety. Consider psychiatric hospitalization again once medically cleared. JOB# [id number]
--- NOTE | 2017-08-29 19:57 | Discharge Summary ---
DATE OF DISCHARGE: 08/29/2017 CHIEF COMPLAINT: Agitation, abnormal EKG, diagnosed with UTI. FINAL DIAGNOSES: 1. Cardiac arrhythmia. 2. Urinary tract infection. 3. Leukocytosis. 4. Increasing agitation. 5. Chronic obstructive pulmonary disease. 6. Schizoaffective disorder. 7. Seizure. 8. Hypertension. 9. Hypercholesterolemia. 10. Elevated ammonia. HISTORY OF PRESENT ILLNESS: This is a 52-year-old -[place] male with history of schizoaffective disorder, seizure, hypertension, and encephalopathy, who was admitted from inpatient psych for medical evaluation secondary to abnormal EKG. The patient is admitted for further management. PHYSICAL EXAMINATION: VITAL SIGNS: Blood pressure 137/67, pulse is 67, respirations 14, temperature 97.4. GENERAL: An elderly male, appears his stated age. NECK: Supple. No mass. LUNGS: Equal breath sounds with a few rhonchi. HEART: Regular rate and rhythm without appreciable murmurs. ABDOMEN: Soft, globular. EXTREMITIES: Positive excoriations. HOSPITAL COURSE: The patient was admitted to telemetry, continued on IV hydration and IV antibiotic. White count was elevated on admission at 11.1. The patient has remained stable. The patient was seen by Psychiatry. The patient was cleared for discharge. CONDITION ON DISCHARGE: Fair. DISCHARGE INSTRUCTIONS: The patient to continue current regimen. The patient may need a stress test on an outpatient basis. [facility]# [id number]
[2017-08-30 05:12] LABS: FOLIC ACID >20.0 ng/mL (>3.0)
== END 2017-08-29 19:13 | DRG 689 ==
LOC: ER 12:19 → TELE 16:25
PROVIDERS: ADMIT Internal Medicine; ATTEND Internal Medicine
DX: N39.0 Urinary tract infection, site not specified (principal); K72.00 Acute and subacute hepatic failure without coma; G20 Parkinson's disease; F25.9 Schizoaffective disorder, unspecified; R56.9 Unspecified convulsions; I49.9 Cardiac arrhythmia, unspecified; I45.10 Unspecified right bundle-branch block; I48.91 Unspecified atrial fibrillation; Z95.1 Presence of aortocoronary bypass graft; J44.9 Chronic obstructive pulmonary disease, unspecified; I10 Essential (primary) hypertension; J45.909 Unspecified asthma, uncomplicated; D64.9 Anemia, unspecified; K72.90 Hepatic failure, unspecified without coma; E78.00 Pure hypercholesterolemia, unspecified; D72.829 Elevated white blood cell count, unspecified; R45.1 Restlessness and agitation; K21.9 Gastro-esophageal reflux disease without esophagitis; Z87.11 Personal history of peptic ulcer disease; Z79.01 Long term (current) use of anticoagulants; Z79.899 Other long term (current) drug therapy
CPT/HCPCS: 36415-UA; 71045-TC; 80048-TC; 80053-TC; 81001-TC; 82140-TC; 82607-90; 82746-90; 83880-TC; 84443-TC; 84484-TC; 85025-TC; 93005; 94760; J1644; J1956; Z7610